=== PATIENT | male | born 1960 | race Caucasian/White ===

== ENCOUNTER 2022-02-19 19:22 | Inpatient (IN) | payer BC ==
[~2022-02-19] VITALS: Ht 182.9 cm; Wt 139.5 kg
[2022-02-19] MEDS: carvedilol 6.25mg tablet PO SCH ×2 (19:25→19:53)
[2022-02-19] MEDS ORDERED: nitroGLYCERIN 0.4mg/hour patch TD ONE (19:25)
[2022-02-19 19:45] LABS: ABG BASE EXCESS 5.5 mmol/L (-2.0-2.0); ABG HCO3 37.3 mmol/L (22.0-26.0); ABG OXYGEN SATURATION 97.3 % (94-97); ABG PCO2 (T) 99.1 mmHg (35.0-48.0); ABG PO2 (T) 114.3 mmHg (75.0-100.0); ALLEN'S TEST POSITIVE; FCOHb 2.2 % (0.0-3.9); FLOW 6 L/min; FMetHb 0.4 % (0.0-1.5); FO2Hb 94.8 % (94-97); PATIENT TEMPERATURE 37.2; TOTAL HEMOGLOBIN 14.4 G/dl (14.0-18.0)
[2022-02-19] MEDS ORDERED: naloxone 0.4 mg/ml inj IV ONE (19:50)
[2022-02-19 19:51] LABS: BASOPHILS % (AUTO) 0.1 % (0-1); EOSINOPHILS # (AUTO) 0.2 X10'3 (0-0.9); HEMOGLOBIN 13.3 g/dl (14.0-17.9); LYMPHOCYTES # (AUTO) 0.7 X10'3 (1.1-4.8); LYMPHOCYTES % (AUTO) 8.2 % (21-51); MEAN CORPUSCULAR HEMOGLOBIN 27.2 PG (27.0-31.0); MEAN CORPUSCULAR HGB CONC 31.6 g/dL (33.0-36.5); MEAN PLATELET VOLUME 10.2 FL (7.4-10.4); MONOCYTES # (AUTO) 0.9 X10'3 (0-0.9); MONOCYTES % (AUTO) 10.8 % (2-12); NEUTROPHILS # (AUTO) 6.5 X10'3 (1.8-7.7); NEUTROPHILS % (AUTO) 78.9 % (42-75); PLATELET COUNT 72 X10'3 (140-440); RED BLOOD COUNT 4.88 X10'6 (4.70-6.10); RED CELL DISTRIBUTION WIDTH 18.8 % (11.5-14.5); WHITE BLOOD COUNT 8.3 X10'3 (4.5-11.0)
[2022-02-19 20:02] LABS: APTT 28 SECONDS (22-32)
[2022-02-19 20:03] LABS: ALANINE AMINOTRANSFERASE 28 U/L (12-78); ALBUMIN/GLOBULIN RATIO 0.5 (1.1-1.5); ALKALINE PHOSPHATASE 205 IU/L (46-116); ANION GAP 5 (8-16); ASPARTATE AMINO TRANSFERASE 51 U/L (10-37); BILIRUBIN,TOTAL 1.9 MG/DL (0.1-1.0); BLOOD UREA NITROGEN 8 MG/DL (7-18); BUN/CREATININE RATIO 7.8 (5.4-32.0); CALCIUM 7.9 MG/DL (8.5-10.1); CHLORIDE 95 MMOL/L (99-107); CREATININE 1.03 MG/DL (0.60-1.10); GLUCOSE 156 MG/DL (70-104); POTASSIUM 4.1 MMOL/L (3.5-5.1); SODIUM 137 MMOL/L (135-145); TOTAL CARBON DIOXIDE 37.4 MMOL/L (24-32); TOTAL PROTEIN 8.8 G/DL (6.4-8.2); eGFR 73 ML/MIN
[2022-02-19 20:11] LABS: MAGNESIUM 1.2 MG/DL (1.5-2.4)
[2022-02-19] MEDS: naloxone 0.4 mg/ml inj IV PRN ×2 (20:13→20:39)
[2022-02-19 20:27] LABS: ETHANOL < 0.010 GM/DL (0.0-0.010)
[2022-02-19 20:40] LABS: URINE AMPHETAMINE SCREEN NEGATIVE (Neg); URINE BARBITUATE SCREEN NEGATIVE (Neg); URINE BENZODIAZEPINES SCREEN NEGATIVE (Neg); URINE CANNABINOID SCREEN NEGATIVE (Neg); URINE COCAINE SCREEN NEGATIVE (Neg); URINE METHADONE SCREEN NEGATIVE (Neg); URINE OPIATE SCREEN NEGATIVE (Neg); URINE PHENCYCLIDINE SCREEN NEGATIVE (Neg)
[2022-02-19 20:45] LABS: PLATELET ESTIMATE DECREASED; POLYCHROMASIA 1+
[2022-02-19 20:46] LABS: ELLIPTOCYTES FEW
[2022-02-19] MEDS ORDERED: succinylcholine 20mg/ml inj IV ONE (21:50)
[2022-02-19] MEDS ORDERED: midazolam 100mg in NS 100ml 100 ML IV ONE (21:50)
[2022-02-19] MEDS ORDERED: propofol 1000mg/100ml bottle 100 ML IV ONE (21:50)
[2022-02-19] MEDS ORDERED: etomidate 2mg/ml inj. IV ONE (21:50)
[2022-02-19] MEDS ORDERED: POTA-192 PO (21:52)
[2022-02-19 22:23] VITALS: BP 92/59
[2022-02-19] MEDS ORDERED: normal saline 500ml IV soln 500 ML IV ONE (22:45)
[2022-02-19] MEDS ORDERED: METF-436 PO (22:47)
[2022-02-19] MEDS ORDERED: CETI-90 PO (22:47)
[2022-02-19] MEDS ORDERED: FURO-150 PO (22:48)
[2022-02-19] MEDS ORDERED: PANT-47 PO (22:49)
[2022-02-19] MEDS ORDERED: AMIO200T61 PO (22:50)
[2022-02-19 22:55] LABS: ABG BASE EXCESS 8.3 mmol/L (-2.0-2.0); ABG HCO3 36.7 mmol/L (22.0-26.0); ABG OXYGEN SATURATION 95.5 % (94-97); ABG PCO2 (T) 71.8 mmHg (35.0-48.0); ABG PO2 (T) 85.1 mmHg (75.0-100.0); ALLEN'S TEST POSITIVE; FCOHb 2.3 % (0.0-3.9); FMetHb 0.3 % (0.0-1.5); PATIENT TEMPERATURE 37.5; PEEP 5 cm H2O; RESPIRATORY RATE 18 b/min; TIDAL VOLUME 450 mL; TOTAL HEMOGLOBIN 13.2 G/dl (14.0-18.0)
[2022-02-19] MEDS ORDERED: ATOR40TA PO (22:58)
[2022-02-19] MEDS ORDERED: ESCI10TA PO (22:58)
[2022-02-19] MEDS ORDERED: CARV-50 PO (22:59)
[2022-02-19] MEDS ORDERED: SYN0.088T PO (23:00)
[2022-02-19] MEDS ORDERED: OMEG-166 PO (23:03)
[2022-02-19] MEDS ORDERED: DOCU-148 PO (23:03)
[2022-02-19] MEDS ORDERED: MAGN250T11 PO (23:03)
[2022-02-19] MEDS ORDERED: FOLI0.8T6 PO (23:03)
[2022-02-19] MEDS ORDERED: VIT1TABL66 (23:03)
[2022-02-19] MEDS ORDERED: MELA10CA2 PO (23:03)
[2022-02-19] MEDS ORDERED: MULT-1085 PO (23:03)
[2022-02-19] MEDS ORDERED: LIDOcaine 2% 10ml TOPICAL JELLY (Urojet) TP ONE (23:35)
[2022-02-19] MEDS ORDERED: ondansetron/PF 4mg/2ml inj IV PRN (23:35)
[2022-02-19] MEDS ORDERED: magnesium hydroxide 30ml (MOM) UD suspension PO PRN (23:35)
[2022-02-19] MEDS ORDERED: acetaminophen 325mg tablet PO PRN ×2 (23:35)
[2022-02-19] MEDS ORDERED: POTASSIUM BICARB 20meq eff tab 20 MEQ TABLET.EFF PO PRN ×2 (23:35)
[2022-02-19] MEDS ORDERED: heparin 10,000 units/1 ML INJ IV PRN (23:45)
[2022-02-19] MEDS ORDERED: heparin 10,000 units/1 ML INJ IV ONE (23:45)
[2022-02-19] MEDS: FENTANYL-0.9 % NACL/PF 100 ML IV SCH (23:45)
[2022-02-19] MEDS ORDERED: propofol 1000mg/100ml bottle 100 ML IV SCH (23:45)
[2022-02-19 23:46] VITALS: BP 104/63
[2022-02-20] VITALS (21 sets, daily range): BP systolic 104–133; BP diastolic 52–84
[2022-02-20 00:14] LABS: TRIGLYCERIDES 74 MG/DL (20-135)
--- NOTE | 2022-02-20 00:22 | NUR ---
Per Dr. Salas to confirm he wanted to start Heparin drip with pt platelets 72 and PTT 28. Ok to start drip and will recheck platelets in the morning.
--- NOTE | 2022-02-20 01:07 | NUR ---
report given to Kathryn EWING.
[2022-02-20] MEDS ORDERED: AMIO100T4 PO (01:22)
[2022-02-20] MEDS ORDERED: POTA-205 PO (01:22)
[2022-02-20] MEDS ORDERED: CARV6.253 PO (01:22)
[2022-02-20] MEDS ORDERED: LEVO137C4 PO (01:22)
[2022-02-20] MEDS: HEPARIN SOD,PORK IN 0.45% NACL 250 ML IV SCH (01:47)
[2022-02-20 03:08] LABS: ABG BASE EXCESS 9.4 mmol/L (-2.0-2.0); ABG HCO3 35.6 mmol/L (22.0-26.0); ABG OXYGEN SATURATION 95.7 % (94-97); ABG PCO2 (T) 57.8 mmHg (35.0-48.0); ALLEN'S TEST POSITIVE; FCOHb 1.7 % (0.0-3.9); FMetHb 0.2 % (0.0-1.5); FO2Hb 93.9 % (94-97); PATIENT TEMPERATURE 37.9; PEEP 5 cm H2O; RESPIRATORY RATE 18 b/min; TIDAL VOLUME 450 mL; TOTAL HEMOGLOBIN 12.7 G/dl (14.0-18.0)
[2022-02-20] MEDS ORDERED: acetaminophen 650mg rectal suppository RC PRN (03:11)
--- NOTE | 2022-02-20 06:54 | NUR ---
ASSUMED CARE OF PT. FENT GTT @ 150MCG/HR, VERSED 3ML/HR, HEP GTT @ 1000 UNITS AND AWAITING THIS MORNING'S PLT AND PTT. HOLDING FOR ICU BED.
[2022-02-20] MEDS ORDERED: propofol 1000mg/100ml bottle 100 ML IV SCH (07:00)
[2022-02-20] MEDS ORDERED: pantoprazole 40mg Tablet.DR PO SCH (07:30)
[2022-02-20 07:41] LABS: BASOPHILS % (AUTO) 0.3 % (0-1); EOSINOPHILS # (AUTO) 0.1 X10'3 (0-0.9); EOSINOPHILS % (AUTO) 1.6 % (0-6); HEMATOCRIT 37.1 % (42.0-52.0); HEMOGLOBIN 11.7 g/dl (14.0-17.9); LYMPHOCYTES # (AUTO) 0.9 X10'3 (1.1-4.8); MEAN CORPUSCULAR HGB CONC 31.6 g/dL (33.0-36.5); MEAN CORPUSCULAR VOLUME 85.6 FL (78-98); MEAN PLATELET VOLUME 10.4 FL (7.4-10.4); MONOCYTES # (AUTO) 0.8 X10'3 (0-0.9); MONOCYTES % (AUTO) 12.5 % (2-12); NEUTROPHILS # (AUTO) 4.8 X10'3 (1.8-7.7); NEUTROPHILS % (AUTO) 72.6 % (42-75); PLATELET COUNT 60 X10'3 (140-440); RED BLOOD COUNT 4.33 X10'6 (4.70-6.10); RED CELL DISTRIBUTION WIDTH 18.3 % (11.5-14.5); WHITE BLOOD COUNT 6.6 X10'3 (4.5-11.0)
[2022-02-20 07:56] LABS: APTT 33 SECONDS (22-32)
[2022-02-20] MEDS: K and/or MAG REPLACEMENT MC SCH (08:00)
[2022-02-20] MEDS ORDERED: aspirin 81mg tab.chew PO ONE (08:00)
[2022-02-20] MEDS: FENTANYL-0.9 % NACL/PF 100 ML IV SCH ×2 (08:21→16:06)
[2022-02-20 08:28] LABS: ALANINE AMINOTRANSFERASE 23 U/L (12-78); ALBUMIN 2.5 G/DL (3.4-5.0); ALBUMIN/GLOBULIN RATIO 0.5 (1.1-1.5); ALKALINE PHOSPHATASE 159 IU/L (46-116); ANION GAP 8 (8-16); ASPARTATE AMINO TRANSFERASE 49 U/L (10-37); BILIRUBIN,TOTAL 1.4 MG/DL (0.1-1.0); BLOOD UREA NITROGEN 8 MG/DL (7-18); BUN/CREATININE RATIO 8.5 (5.4-32.0); CALCIUM 7.8 MG/DL (8.5-10.1); CHLORIDE 98 MMOL/L (99-107); CREATININE 0.94 MG/DL (0.60-1.10); GLUCOSE 102 MG/DL (70-104); MAGNESIUM 1.2 MG/DL (1.5-2.4); SODIUM 141 MMOL/L (135-145); TOTAL CARBON DIOXIDE 34.9 MMOL/L (24-32); TOTAL PROTEIN 7.5 G/DL (6.4-8.2); TRIGLYCERIDES 74 MG/DL (20-135); eGFR 82 ML/MIN
--- NOTE | 2022-02-20 09:05 | NUR ---
SPOKE WITH DR JACKSON WHO STATED TO HOLD HEP GTT GIVEN PLT COUNT. HEPARIN STOPPED @ 904. PLAN TO PLACE CT AT BEDSIDE 2 HOURS AFTER GTT STOPPED. FENT GTT CHANGED TO 50MCG/HR AND VERSED TO 5MG/H.
[2022-02-20] MEDS: magnesium 2GM in 50ml NS 50 ML IV PRN (10:35)
[2022-02-20] MEDS ORDERED: LIDOcaine 1% 30ml preserv. free vial SQ STA (11:36)
--- NOTE | 2022-02-20 11:49 | NUR ---
REPORT CALLED TO MIKY IN CICU. WILL TRANSFER PATIENT AFTER PIGTAIL PLACED.
[2022-02-20] MEDS ORDERED: LIDOcaine 1% 30ml preserv. free vial IJ STA (11:58)
--- NOTE | 2022-02-20 12:26 | NUR ---
Per Dr. Dixon verbal order, patient received at versed bolus of 2 mg IV once now. Versed also increased to 6 mg (at which charted in IV spread sheet)
--- NOTE | 2022-02-20 12:27 | NUR ---
Late chart @1215- chest tube set up for Dr. Galindo. Time out performed at 1216 in the presents of Dr. Galindo. @1220 - Attempted to place pig tail chest tube at which attempt failed. @1225 - Dr. Galindo requested a 28 Fr. chest tube to be place due to fluid in the pleural space. @1227 - Blood pressure 104/53 mmHg, 72 beats/min sinus rhythm with rare PVC's, 97% on 100 FiO2, rate at 18, vital volume of 450 mL, PEEP 5. Patient tolerating procedure well.
--- NOTE | 2022-02-20 12:52 | NUR ---
Chest tube place successfully, [address] and secured by Dr. Galindo. Primary RN loki placing dry dressing. Chest tube output at 750 mL, serious with blood tinged fluid.
--- NOTE | 2022-02-20 12:53 | NUR ---
Dr. Galindo gave verbal order for single view chest xray post chest tube placement.
--- NOTE | 2022-02-20 12:54 | NUR ---
Per Dr. Galindo, let chest tube drain approx. 2-3 L then apply suction.
--- NOTE | 2022-02-20 13:53 | NUR ---
1330 - after 28F CT placed - total amount out 1800ml serous fluid out. 325ml zac-colored urine emptied from tirado.
--- NOTE | 2022-02-20 14:00 | NUR ---
pt admitted to room 2008 via xiang from ER accompained by RN, RT and tech.. vss. ct clamped for approx 1 hour.
[2022-02-20] MEDS ORDERED: midazolam 100mg in NS 100ml 100 ML IV PRN (16:10)
[2022-02-20] MEDS ORDERED: normal saline 1000ml 1,000 ML IV ONE (16:35)
--- NOTE | 2022-02-20 16:51 | NUR ---
Dr. Galindo at bedside pleural fluid sent to lab. order received for ns 1 liter bolus
[2022-02-20 17:10] LABS: ALBUMIN,BODY FLUID 1.1 G/DL; LDH,BODY FLUID 190 U/L
[2022-02-20 17:41] LABS: EOSINOPHILS,BODY FLUID 2 %; LYMPHOCYTES,BODY FLUID 8 %; MONOCYTES,BODY FLUID 4 %; NEUTROPHILS,BODY FLUID 86 %
[2022-02-20 17:42] LABS: BFAPPEAR CLOUDY
[2022-02-20 17:43] LABS: BF MESOTHELIAL CELLS FEW; BF RBC COUNT 36625 /CU MM; BF WBC COUNT 820 /CU MM (0-1000); BFCOLOR AMBER; BFVOLUME 20 ML
[2022-02-20 17:53] LABS: ALBUMIN 2.1 G/DL (3.4-5.0); ANION GAP 7 (8-16); BLOOD UREA NITROGEN 10 MG/DL (7-18); BUN/CREATININE RATIO 10.8 (5.4-32.0); CALCIUM 7.7 MG/DL (8.5-10.1); CHLORIDE 98 MMOL/L (99-107); CREATININE 0.93 MG/DL (0.60-1.10); GLUCOSE 103 MG/DL (70-104); SODIUM 139 MMOL/L (135-145); TOTAL CARBON DIOXIDE 34.4 MMOL/L (24-32); eGFR 83 ML/MIN
[2022-02-20 17:54] LABS: POTASSIUM 4.1 MMOL/L (3.5-5.1)
[2022-02-20 18:11] LABS: HEMOGLOBIN A1C 6.5 % (4.5-6.2)
[2022-02-20] MEDS ORDERED: fentaNYL/PF 50MCG/1 ML 2ML syringe IV PRN (19:15)
[2022-02-20] MEDS ORDERED: docusate sod 100mg capsule PO SCH (20:00)
[2022-02-20] MEDS: carvedilol 6.25mg tablet PO SCH (20:23)
[2022-02-20] MEDS ORDERED: Melatonin 3mg tablet PO SCH (21:00)
[2022-02-21] VITALS (35 sets, daily range): BP systolic 92–121; BP diastolic 48–71
[2022-02-21] MEDS: FENTANYL-0.9 % NACL/PF 100 ML IV SCH ×3 (00:40→19:08)
[2022-02-21] MEDS: HEPARIN SOD,PORK IN 0.45% NACL 250 ML IV SCH (00:45)
[2022-02-21 03:24] LABS: CLARITY,URINE TURBID (Clear); COLOR,URINE BROWN (Yellow)
[2022-02-21 03:28] LABS: UA COLLECTION TYPE FOLEY CATH
[2022-02-21 03:31] LABS: AMORPHOUS PHOSPHATES 4+; BACTERIA,URINE 1+ /HPF (Neg); SQUAMOUS EPITHELIAL CELL,UR FEW /LPF (FEW)
[2022-02-21 04:01] LABS: ABG BASE EXCESS 7.8 mmol/L (-2.0-2.0); ABG HCO3 32.7 mmol/L (22.0-26.0); ABG OXYGEN SATURATION 97.5 % (94-97); ABG PCO2 (T) 46.9 mmHg (35.0-48.0); ABG PO2 (T) 95.5 mmHg (75.0-100.0); ALLEN'S TEST Modified; FCOHb 0.9 % (0.0-3.9); FMetHb 0.3 % (0.0-1.5); FO2Hb 96.3 % (94-97); PATIENT TEMPERATURE 36.9; PEEP 5 cm H2O; RESPIRATORY RATE 18 b/min; TIDAL VOLUME 450 mL; TOTAL HEMOGLOBIN 12.5 G/dl (14.0-18.0)
[2022-02-21 06:22] LABS: ALANINE AMINOTRANSFERASE 26 U/L (12-78); ALBUMIN/GLOBULIN RATIO 0.4 (1.1-1.5); ALKALINE PHOSPHATASE 146 IU/L (46-116); ANION GAP 5 (8-16); ASPARTATE AMINO TRANSFERASE 42 U/L (10-37); BILIRUBIN,TOTAL 1.6 MG/DL (0.1-1.0); BLOOD UREA NITROGEN 11 MG/DL (7-18); BUN/CREATININE RATIO 10.7 (5.4-32.0); CALCIUM 7.9 MG/DL (8.5-10.1); CHLORIDE 100 MMOL/L (99-107); CREATININE 1.03 MG/DL (0.60-1.10); GLUCOSE 83 MG/DL (70-104); MAGNESIUM 1.8 MG/DL (1.5-2.4); POTASSIUM 3.9 MMOL/L (3.5-5.1); SODIUM 142 MMOL/L (135-145); TOTAL CARBON DIOXIDE 36.8 MMOL/L (24-32); TOTAL PROTEIN 6.7 G/DL (6.4-8.2); eGFR 73 ML/MIN
[2022-02-21 06:27] LABS: BASOPHILS % (AUTO) 0.5 % (0-1); EOSINOPHILS # (AUTO) 0.2 X10'3 (0-0.9); EOSINOPHILS % (AUTO) 2.5 % (0-6); HEMOGLOBIN 11.5 g/dl (14.0-17.9); MONOCYTES # (AUTO) 1.4 X10'3 (0-0.9); WHITE BLOOD COUNT 6.3 X10'3 (4.5-11.0)
[2022-02-21 06:32] LABS: HEMATOCRIT 36.5 % (42.0-52.0); LYMPHOCYTES # (AUTO) 0.8 X10'3 (1.1-4.8); LYMPHOCYTES % (AUTO) 12.2 % (21-51); MEAN CORPUSCULAR HEMOGLOBIN 27.4 PG (27.0-31.0); MEAN CORPUSCULAR HGB CONC 31.6 g/dL (33.0-36.5); MEAN CORPUSCULAR VOLUME 86.7 FL (78-98); MEAN PLATELET VOLUME 11.2 FL (7.4-10.4); MONOCYTES % (AUTO) 21.5 % (2-12); NEUTROPHILS % (AUTO) 63.3 % (42-75); PLATELET COUNT 51 X10'3 (140-440); RED CELL DISTRIBUTION WIDTH 18.9 % (11.5-14.5)
[2022-02-21 07:20] LABS: ACANTHOCYTES FEW; ANISOCYTOSIS 2+; NUCLEATED RED BLOOD CELLS 2 /100WBC (0-0); PLATELET ESTIMATE DECREASED; TOTAL CELLS COUNTED 100
[2022-02-21 07:21] LABS: ELLIPTOCYTES 1+; HYPOCHROMASIA 1+
[2022-02-21] MEDS ORDERED: levoTHYROXINE 25mcg tablet PO SCH (07:30)
[2022-02-21] MEDS ORDERED: levoTHYROXINE 112mcg tablet PO SCH (07:30)
[2022-02-21] MEDS ORDERED: furosemide 10 MG/1 ML 10ml inj IV ONE (07:45)
[2022-02-21] MEDS ORDERED: atorvastatin 20mg tablet PO SCH (08:00)
[2022-02-21] MEDS ORDERED: amiodarone 100mg tablet PO SCH (08:00)
[2022-02-21] MEDS: K and/or MAG REPLACEMENT MC SCH (08:00)
[2022-02-21] MEDS: OMEGA-3/DHA/EPA/FISH OIL 1 EACH CAPSULE.DR PO SCH (08:00)
[2022-02-21] MEDS ORDERED: pantoprazole 40mg Tablet.DR PO SCH (08:00)
[2022-02-21] MEDS ORDERED: ESCITALOPRAM OXALATE 5 MG TABLET PO SCH (08:00)
[2022-02-21] MEDS: carvedilol 6.25mg tablet PO SCH (10:49)
--- NOTE | 2022-02-21 11:03 | NUR ---
DM/TF consults: Per EMR pt with T2DM, well controlled with A1c 6.5%, DM education not warranted at this time. Pt admit for NSTEMI with pulmonary edema. Pt intubated at this time with an OGT in place, see TF recommendations below. Noted pt with a low Simeon of 12. Per EMR pt with 1+ edema to bilat feet and skin is intact. No documented BM since admit though pt receiving routine bowel care. Will continue to follow closely. Recommendations: 1) Continuous TF via OGT using Vital HP with 90 mL/hr goal to provide 2160 mL total volume/day, 2160 kcal, 189 g protein, and 1806 mL water 2) Additional 100 mL water flush Q4H; monitor serum Na 3) Prealbumin q Saturday/ 4) Daily scaled weights 5) Routine bowel care 6) Advance to heart healthy diet as medically indicated following extubation Addendum: 02/21/22 at [address] Amended: Links added.
[2022-02-21] MEDS: argatroban in NS 50mg/50ml 50 ML IV SCH ×5 (12:25→21:42)
[2022-02-21] MEDS ORDERED: acetaminophen 325mg tablet OGT PRN (14:27)
[2022-02-21] MEDS ORDERED: magnesium hydroxide 30ml (MOM) UD suspension OGT PRN (14:32)
[2022-02-21] MEDS ORDERED: POTASSIUM BICARB 20meq eff tab 20 MEQ TABLET.EFF OGT PRN (14:33)
--- NOTE | 2022-02-21 18:32 | NUR ---
Problems reprioritized. Patient report given, questions answered & plan of care reviewed.
[2022-02-21] MEDS: midazolam 100mg in NS 100ml 100 ML IV PRN (19:09)
[2022-02-21] MEDS: docusate sodium 100mg/10ml UD cup OGT SCH (20:40)
[2022-02-21] MEDS: carvedilol 6.25mg tablet OGT SCH (20:41)
[2022-02-21] MEDS: mineral oil/petrolatum, white cream 113gm jar TP SCH (20:51)
[2022-02-21] MEDS: Melatonin 3mg tablet OGT SCH (21:26)
[2022-02-21] MEDS ORDERED: bisacodyl 10mg suppository rectal RC PRN (23:35)
[2022-02-22] VITALS (35 sets, daily range): BP systolic 94–118; BP diastolic 46–70
[2022-02-22] MEDS: FENTANYL-0.9 % NACL/PF 100 ML IV SCH ×2 (03:10→19:19)
[2022-02-22 03:29] LABS: BASOPHILS % (AUTO) 0.4 % (0-1); EOSINOPHILS # (AUTO) 0.2 X10'3 (0-0.9); EOSINOPHILS % (AUTO) 2.8 % (0-6); HEMATOCRIT 35.7 % (42.0-52.0); HEMOGLOBIN 11.4 g/dl (14.0-17.9); LYMPHOCYTES # (AUTO) 0.5 X10'3 (1.1-4.8); LYMPHOCYTES % (AUTO) 8.9 % (21-51); MEAN CORPUSCULAR HEMOGLOBIN 27.4 PG (27.0-31.0); MEAN CORPUSCULAR HGB CONC 32.1 g/dL (33.0-36.5); MEAN CORPUSCULAR VOLUME 85.5 FL (78-98); MEAN PLATELET VOLUME 10.9 FL (7.4-10.4); MONOCYTES # (AUTO) 0.6 X10'3 (0-0.9); MONOCYTES % (AUTO) 11.5 % (2-12); NEUTROPHILS # (AUTO) 4.2 X10'3 (1.8-7.7); NEUTROPHILS % (AUTO) 76.4 % (42-75); RED BLOOD COUNT 4.17 X10'6 (4.70-6.10); RED CELL DISTRIBUTION WIDTH 18.5 % (11.5-14.5); WHITE BLOOD COUNT 5.6 X10'3 (4.5-11.0)
[2022-02-22 03:37] LABS: ABG BASE EXCESS 10.7 mmol/L (-2.0-2.0); ABG HCO3 37.1 mmol/L (22.0-26.0); ABG OXYGEN SATURATION 93.6 % (94-97); ABG PCO2 (T) 57.4 mmHg (35.0-48.0); ABG PO2 (T) 72.4 mmHg (75.0-100.0); ALLEN'S TEST POSITIVE; FCOHb 0.7 % (0.0-3.9); FMetHb 0.3 % (0.0-1.5); FO2Hb 92.7 % (94-97); PATIENT TEMPERATURE 36.9; PEEP 5 cm H2O; RESPIRATORY RATE 18 b/min; TIDAL VOLUME 450 mL; TOTAL HEMOGLOBIN 12.6 G/dl (14.0-18.0)
[2022-02-22 03:42] LABS: PLATELET COUNT 49 X10'3 (140-440)
[2022-02-22 03:50] LABS: ALANINE AMINOTRANSFERASE 16 U/L (12-78); ALBUMIN/GLOBULIN RATIO 0.4 (1.1-1.5); ALKALINE PHOSPHATASE 148 IU/L (46-116); ANION GAP 7 (8-16); ASPARTATE AMINO TRANSFERASE 42 U/L (10-37); BILIRUBIN,TOTAL 1.7 MG/DL (0.1-1.0); BLOOD UREA NITROGEN 14 MG/DL (7-18); BUN/CREATININE RATIO 11.8 (5.4-32.0); CALCIUM 7.5 MG/DL (8.5-10.1); CHLORIDE 99 MMOL/L (99-107); CREATININE 1.19 MG/DL (0.60-1.10); GLUCOSE 123 MG/DL (70-104); MAGNESIUM 1.4 MG/DL (1.5-2.4); POTASSIUM 3.6 MMOL/L (3.5-5.1); PREALBUMIN 9.8 MG/DL (19-36); SODIUM 142 MMOL/L (135-145); TOTAL CARBON DIOXIDE 36.4 MMOL/L (24-32); TOTAL PROTEIN 6.7 G/DL (6.4-8.2); TRIGLYCERIDES 79 MG/DL (20-135); eGFR 62 ML/MIN
[2022-02-22] MEDS: argatroban in NS 50mg/50ml 50 ML IV SCH (04:08)
--- NOTE | 2022-02-22 04:10 | NUR ---
PTT 114---followed protocol for Argatraban. Recheck this morning was PTT 68. MD Salas notified 0410 from critical PTT as well as platelets 49. No new orders given. Addendum: 02/22/22 at 0645 by Kade Webb RN 1900 Dr. Galindo at bedside. New orders given for plavix and aspirin. See charting for details.
[2022-02-22 04:33] LABS: ANISOCYTOSIS 2+; PLATELET ESTIMATE DECREASED
[2022-02-22 04:34] LABS: LARGE PLATELETS FEW
[2022-02-22] MEDS: magnesium 2GM in 50ml NS 50 ML IV PRN (04:42)
[2022-02-22] MEDS: levoTHYROXINE 25mcg tablet OGT SCH (07:30)
[2022-02-22] MEDS: levoTHYROXINE 112mcg tablet OGT SCH (07:30)
[2022-02-22] MEDS: K and/or MAG REPLACEMENT MC SCH (08:00)
[2022-02-22] MEDS ORDERED: clopidogrel 75mg tablet PO SCH (08:00)
[2022-02-22] MEDS ORDERED: aspirin 325mg tablet PO SCH (08:30)
[2022-02-22] MEDS: docusate sodium 100mg/10ml UD cup OGT SCH ×2 (08:53→21:39)
[2022-02-22] MEDS: lansoprazole 15mg solutab OGT SCH (08:54)
[2022-02-22] MEDS: ESCITALOPRAM OXALATE 5 MG TABLET OGT SCH (08:54)
[2022-02-22] MEDS: atorvastatin 20mg tablet OGT SCH (08:54)
[2022-02-22] MEDS: OMEGA-3/DHA/EPA/FISH OIL 1 EACH CAPSULE.DR PO SCH (08:55)
[2022-02-22] MEDS: carvedilol 6.25mg tablet OGT SCH ×2 (08:55→21:40)
[2022-02-22] MEDS: amiodarone 100mg tablet OGT SCH (08:55)
[2022-02-22] MEDS: mineral oil/petrolatum, white cream 113gm jar TP SCH ×2 (08:56→21:40)
[2022-02-22 10:16] LABS: BASOPHILS # (AUTO) 0.1 X10'3 (0-0.2); BASOPHILS % (AUTO) 1.4 % (0-1); EOSINOPHILS # (AUTO) 0.1 X10'3 (0-0.9); EOSINOPHILS % (AUTO) 2.5 % (0-6); HEMATOCRIT 35.8 % (42.0-52.0); HEMOGLOBIN 11.4 g/dl (14.0-17.9); LYMPHOCYTES # (AUTO) 0.4 X10'3 (1.1-4.8); LYMPHOCYTES % (AUTO) 7.4 % (21-51); MEAN CORPUSCULAR HEMOGLOBIN 27.3 PG (27.0-31.0); MEAN CORPUSCULAR HGB CONC 31.9 g/dL (33.0-36.5); MEAN CORPUSCULAR VOLUME 85.6 FL (78-98); MEAN PLATELET VOLUME 11.2 FL (7.4-10.4); MONOCYTES # (AUTO) 0.6 X10'3 (0-0.9); MONOCYTES % (AUTO) 10.5 % (2-12); NEUTROPHILS # (AUTO) 4.2 X10'3 (1.8-7.7); NEUTROPHILS % (AUTO) 78.2 % (42-75); RED BLOOD COUNT 4.18 X10'6 (4.70-6.10); RED CELL DISTRIBUTION WIDTH 18.9 % (11.5-14.5); WHITE BLOOD COUNT 5.3 X10'3 (4.5-11.0)
[2022-02-22 10:19] LABS: ALANINE AMINOTRANSFERASE 26 U/L (12-78); ALBUMIN 1.9 G/DL (3.4-5.0); ALBUMIN/GLOBULIN RATIO 0.4 (1.1-1.5); ALKALINE PHOSPHATASE 153 IU/L (46-116); ANION GAP 7 (8-16); ASPARTATE AMINO TRANSFERASE 41 U/L (10-37); BILIRUBIN,TOTAL 1.6 MG/DL (0.1-1.0); BLOOD UREA NITROGEN 15 MG/DL (7-18); BUN/CREATININE RATIO 13.8 (5.4-32.0); CALCIUM 7.5 MG/DL (8.5-10.1); CHLORIDE 99 MMOL/L (99-107); CREATININE 1.09 MG/DL (0.60-1.10); GLUCOSE 144 MG/DL (70-104); POTASSIUM 3.4 MMOL/L (3.5-5.1); SODIUM 142 MMOL/L (135-145); TOTAL CARBON DIOXIDE 36.5 MMOL/L (24-32); TOTAL PROTEIN 6.8 G/DL (6.4-8.2); eGFR 69 ML/MIN
[2022-02-22 10:20] LABS: PLATELET COUNT 47 X10'3 (140-440)
[2022-02-22 10:36] LABS: ANISOCYTOSIS 2+; PLATELET ESTIMATE DECREASED
[2022-02-22 10:37] LABS: ELLIPTOCYTES 1+
[2022-02-22] MEDS ORDERED: sodium bicarbonate (8.4%) inj. 150 MEQ in dextrose 5%-water 1,000 ML IV SCH (11:20)
--- NOTE | 2022-02-22 11:55 | NUR ---
and KAYLIN samuelsn bloody thick secretions for ETT. Bronchoscopy held will readress after 1500 per . Addendum: 02/22/22 at 1156 by Yamilka Higgins RT Amended: Links added.
[2022-02-22] MEDS ORDERED: calcium acetate 667mg (PhosLO) capsule OGT SCH (13:00)
[2022-02-22] MEDS ORDERED: ondansetron 4mg/5ml UD cup OGT PRN (17:15)
--- NOTE | 2022-02-22 18:30 | NUR ---
Report given to this RN from Jose at bedside. Pt in no acute distress at time of shift change. Fentanyl and versed drips verified. Chest tube intact.
[2022-02-22] MEDS: Melatonin 3mg tablet OGT SCH (21:39)
[2022-02-23] VITALS (36 sets, daily range): BP systolic 83–143; BP diastolic 42–70
[2022-02-23] MEDS: midazolam 100mg in NS 100ml 100 ML IV PRN ×2 (00:51→17:53)
[2022-02-23 03:28] LABS: ABG BASE EXCESS 9.1 mmol/L (-2.0-2.0); ABG HCO3 35.2 mmol/L (22.0-26.0); ABG OXYGEN SATURATION 91.9 % (94-97); ABG PCO2 (T) 56.3 mmHg (35.0-48.0); ABG PO2 (T) 68.9 mmHg (75.0-100.0); ALLEN'S TEST POSITIVE; FCOHb 0.9 % (0.0-3.9); FMetHb 0.4 % (0.0-1.5); FO2Hb 90.7 % (94-97); PATIENT TEMPERATURE 37.7; PEEP 5 cm H2O; RESPIRATORY RATE 18 b/min; TIDAL VOLUME 450 mL; TOTAL HEMOGLOBIN 12.7 G/dl (14.0-18.0)
[2022-02-23 03:32] LABS: BASOPHILS % (AUTO) 0.3 % (0-1); EOSINOPHILS # (AUTO) 0.1 X10'3 (0-0.9); HEMATOCRIT 35.3 % (42.0-52.0); HEMOGLOBIN 11.3 g/dl (14.0-17.9); LYMPHOCYTES # (AUTO) 0.4 X10'3 (1.1-4.8); LYMPHOCYTES % (AUTO) 6.5 % (21-51); MEAN CORPUSCULAR HEMOGLOBIN 27.5 PG (27.0-31.0); MEAN CORPUSCULAR VOLUME 85.7 FL (78-98); MEAN PLATELET VOLUME 11.7 FL (7.4-10.4); MONOCYTES # (AUTO) 0.9 X10'3 (0-0.9); MONOCYTES % (AUTO) 14.5 % (2-12); NEUTROPHILS # (AUTO) 4.9 X10'3 (1.8-7.7); NEUTROPHILS % (AUTO) 76.7 % (42-75); PLATELET COUNT 54 X10'3 (140-440); RED BLOOD COUNT 4.12 X10'6 (4.70-6.10); RED CELL DISTRIBUTION WIDTH 18.9 % (11.5-14.5); WHITE BLOOD COUNT 6.4 X10'3 (4.5-11.0)
[2022-02-23 03:54] LABS: ALANINE AMINOTRANSFERASE 22 U/L (12-78); ALBUMIN 1.8 G/DL (3.4-5.0); ALBUMIN/GLOBULIN RATIO 0.4 (1.1-1.5); ALKALINE PHOSPHATASE 165 IU/L (46-116); ANION GAP 5 (8-16); ASPARTATE AMINO TRANSFERASE 65 U/L (10-37); BILIRUBIN,TOTAL 1.5 MG/DL (0.1-1.0); BLOOD UREA NITROGEN 18 MG/DL (7-18); BUN/CREATININE RATIO 14.5 (5.4-32.0); CALCIUM 7.5 MG/DL (8.5-10.1); CHLORIDE 99 MMOL/L (99-107); CREATININE 1.24 MG/DL (0.60-1.10); GLUCOSE 172 MG/DL (70-104); MAGNESIUM 1.8 MG/DL (1.5-2.4); SODIUM 141 MMOL/L (135-145); TOTAL CARBON DIOXIDE 37.2 MMOL/L (24-32); TOTAL PROTEIN 6.9 G/DL (6.4-8.2); eGFR 59 ML/MIN
[2022-02-23] MEDS: FENTANYL-0.9 % NACL/PF 100 ML IV SCH ×2 (04:56→21:46)
--- NOTE | 2022-02-23 05:48 | NUR ---
Pt had mostly uneventful mold shifter. Pt continues to be intubated and sedated. Pt is still desating with any turns. Went up on vershector drpratima. Restraints continue to be needed due to intermittent restless with care. Tube feeds remain at goal. No BM overnight. Addendum: 02/23/22 at 0637 by Kade Webb RN 0648 Report given to KAYLIN Mendoza. Kylie checked. Pt in no acute distress at time of report.
[2022-02-23] MEDS: lansoprazole 15mg solutab OGT SCH (08:00)
[2022-02-23] MEDS: amiodarone 100mg tablet OGT SCH (08:21)
[2022-02-23] MEDS: docusate sodium 100mg/10ml UD cup OGT SCH ×2 (08:21→21:03)
[2022-02-23] MEDS: ESCITALOPRAM OXALATE 5 MG TABLET OGT SCH (08:21)
[2022-02-23] MEDS: atorvastatin 20mg tablet OGT SCH (08:22)
[2022-02-23] MEDS: aspirin 325mg tablet OGT SCH (08:22)
[2022-02-23] MEDS: levoTHYROXINE 25mcg tablet OGT SCH (08:22)
[2022-02-23] MEDS: clopidogrel 75mg tablet OGT SCH (08:22)
[2022-02-23] MEDS: carvedilol 6.25mg tablet OGT SCH ×2 (08:22→21:03)
[2022-02-23] MEDS: OMEGA-3/DHA/EPA/FISH OIL 1 EACH CAPSULE.DR PO SCH (08:22)
[2022-02-23] MEDS: levoTHYROXINE 112mcg tablet OGT SCH (08:22)
[2022-02-23] MEDS: mineral oil/petrolatum, white cream 113gm jar TP SCH ×2 (08:26→21:03)
[2022-02-23] MEDS ORDERED: sodium bicarbonate (8.4%) inj. 150 MEQ in dextrose 5%-water 1,000 ML IV SCH (09:30)
[2022-02-23 09:44] LABS: PLATELET COUNT 59 X10'3 (140-440)
[2022-02-23] MEDS ORDERED: NORepinephrine 8mg/ 250ml NS 250 ML IV ONE (10:01)
[2022-02-23] MEDS: NORepinephrine 8mg/ 250ml NS 250 ML IV SCH ×3 (10:08→21:47)
[2022-02-23 10:14] LABS: APTT 26 SECONDS (22-32); D-DIMER 0.82 MG/L FEU (0-0.50)
[2022-02-23] MEDS ORDERED: lactulose 20gm/30ml cup PO PRN (11:10)
[2022-02-23] MEDS ORDERED: iohexol 350MG/ML 100ml bottle IV ONE (14:09)
[2022-02-23] MEDS: piperacillin/tazo 3.375gm/50ml 50 ML IV SCH ×2 (15:24→21:04)
[2022-02-23] MEDS ORDERED: DEXTROSE 15 GM of carb/4 tabs (each vial/BOTTLE has 4 tablets) PO PRN ×2 (16:10)
[2022-02-23] MEDS ORDERED: dextrose 50%-water 50ml dispensing syringe IV PRN ×2 (16:10)
[2022-02-23] MEDS ORDERED: glucagon, human recombinant 1mg kit SUBCUT PRN (16:10)
[2022-02-23] MEDS ORDERED: MESSAGE TO PHARMACY PO ONE (16:10)
[2022-02-23] MEDS ORDERED: DEXTROSE 15 GM of carb/4 tabs (each vial/BOTTLE has 4 tablets) OGT PRN ×2 (16:17)
[2022-02-23] MEDS: azithromycin/NS 500mg/250ml 250 ML IV SCH (16:19)
--- NOTE | 2022-02-23 18:25 | NUR ---
Patient in room CICU 2008. I have received report from Reji, RN and Audrey RN and had the opportunity to ask questions and assume patient care.
[2022-02-23] MEDS ORDERED: acetaminophen 325mg/10.15ml oral unit dose solution PO PRN (19:35)
[2022-02-23] MEDS: polyethylene glycol 3350 17gm powd pack OGT SCH (21:02)
[2022-02-23] MEDS: Melatonin 3mg tablet OGT SCH (21:03)
[2022-02-23] MEDS: lactulose 20gm/30ml cup OGT SCH (21:04)
[2022-02-23] MEDS: acetaminophen 325mg/10.15ml oral unit dose solution OGT PRN (21:12)
[2022-02-23] MEDS: insulin glargine (Lantus) pen - multi-dose SQ SCH (21:15)
[2022-02-23] MEDS: insulin regular, human U-100 3ml vial - multi-dose SQ SCH (21:51)
[2022-02-24] VITALS (35 sets, daily range): BP systolic 90–138; BP diastolic 50–73
--- NOTE | 2022-02-24 02:00 | NUR ---
Chest tube dressing changed: gauze saturated with purulent green drainage. Chest tube site cleaned with Chlorhexidine and redressed with vaseline gauze ang 4x4's secured with silk tape.
[2022-02-24] MEDS: piperacillin/tazo 3.375gm/50ml 50 ML IV SCH ×4 (02:14→19:37)
[2022-02-24] MEDS: NORepinephrine 8mg/ 250ml NS 250 ML IV SCH (02:25)
[2022-02-24] MEDS: insulin regular, human U-100 3ml vial - multi-dose SQ SCH ×4 (02:36→20:54)
[2022-02-24 03:10] LABS: BASOPHILS % (AUTO) 0.2 % (0-1); EOSINOPHILS # (AUTO) 0.1 X10'3 (0-0.9); HEMATOCRIT 36.4 % (42.0-52.0); HEMOGLOBIN 11.6 g/dl (14.0-17.9); LYMPHOCYTES # (AUTO) 0.6 X10'3 (1.1-4.8); LYMPHOCYTES % (AUTO) 4.9 % (21-51); MEAN CORPUSCULAR HEMOGLOBIN 27.2 PG (27.0-31.0); MEAN CORPUSCULAR HGB CONC 31.8 g/dL (33.0-36.5); MEAN CORPUSCULAR VOLUME 85.7 FL (78-98); MEAN PLATELET VOLUME 9.6 FL (7.4-10.4); MONOCYTES # (AUTO) 1.3 X10'3 (0-0.9); NEUTROPHILS # (AUTO) 9.7 X10'3 (1.8-7.7); NEUTROPHILS % (AUTO) 82.9 % (42-75); PLATELET COUNT 103 X10'3 (140-440); RED BLOOD COUNT 4.25 X10'6 (4.70-6.10); RED CELL DISTRIBUTION WIDTH 18.7 % (11.5-14.5); WHITE BLOOD COUNT 11.7 X10'3 (4.5-11.0)
[2022-02-24 03:26] LABS: ALANINE AMINOTRANSFERASE 22 U/L (12-78); ALBUMIN 1.8 G/DL (3.4-5.0); ALBUMIN/GLOBULIN RATIO 0.3 (1.1-1.5); ALKALINE PHOSPHATASE 157 IU/L (46-116); ANION GAP 9 (8-16); ASPARTATE AMINO TRANSFERASE 61 U/L (10-37); BLOOD UREA NITROGEN 16 MG/DL (7-18); BUN/CREATININE RATIO 15.1 (5.4-32.0); CALCIUM 7.7 MG/DL (8.5-10.1); CHLORIDE 102 MMOL/L (99-107); CREATININE 1.06 MG/DL (0.60-1.10); GLUCOSE 210 MG/DL (70-104); MAGNESIUM 1.8 MG/DL (1.5-2.4); SODIUM 146 MMOL/L (135-145); TOTAL CARBON DIOXIDE 35.3 MMOL/L (24-32); eGFR 71 ML/MIN
[2022-02-24 03:44] LABS: ABG HCO3 30.5 mmol/L (22.0-26.0); ABG OXYGEN SATURATION 95.8 % (94-97); ABG PCO2 (T) 55.5 mmHg (35.0-48.0); ABG PO2 (T) 90.5 mmHg (75.0-100.0); FCOHb 1.2 % (0.0-3.9); FMetHb 0.4 % (0.0-1.5); FO2Hb 94.3 % (94-97); PATIENT TEMPERATURE 37.9; PEEP 5 cm H2O; RESPIRATORY RATE 18 b/min; TIDAL VOLUME 450 mL; TOTAL HEMOGLOBIN 13.3 G/dl (14.0-18.0)
[2022-02-24 04:18] LABS: PLATELET ESTIMATE DECREASED
[2022-02-24 04:19] LABS: ANISOCYTOSIS 2+
[2022-02-24 04:20] LABS: ELLIPTOCYTES 1+
--- NOTE | 2022-02-24 05:48 | NUR ---
Chest tube total for shift in current atrium 1220 serosanguineous drainage.
--- NOTE | 2022-02-24 06:17 | NUR ---
Problems reprioritized. Patient report given, questions answered & plan of care reviewed with KAYLIN Garcia.
[2022-02-24] MEDS: lactulose 20gm/30ml cup OGT SCH (06:48)
[2022-02-24 07:54] LABS: PHOSPHORUS 2.9 MG/DL (2.3-4.5)
[2022-02-24] MEDS: mineral oil/petrolatum, white cream 113gm jar TP SCH ×2 (08:00→19:43)
[2022-02-24] MEDS: clopidogrel 75mg tablet OGT SCH (08:00)
[2022-02-24] MEDS ORDERED: LIDOCAINE 4% (40MG/ML) topical solution 50ml **BRONCH ONLY ONE (08:07)
[2022-02-24] MEDS: midazolam 100mg in NS 100ml 100 ML IV PRN (08:13)
--- NOTE | 2022-02-24 08:47 | NUR ---
Reassessment: Pt remains intubated and tolerating TF at goal rate with GRV WNL. Serum Na slightly elevated this morning though has previously been WNL. Pt receiving 100 mL water flushes Q4H, will monitor need to adjust. LBM 02/23 following additional admin of bowel care. No changes to nutrition interventions at this time. Will continue to follow closely. Recommendations: 1) Continuous TF via OGT using Vital HP with 90 mL/hr goal to provide 2160 mL total volume/day, 2160 kcal, 189 g protein, and 1806 mL water 2) Additional 100 mL water flush Q4H; monitor serum Na 3) Prealbumin q Saturday/ 4) Daily scaled weights 5) Routine bowel care 6) Advance to heart healthy diet as medically indicated following extubation Addendum: 02/24/22 at [address] Amended: Links added.
[2022-02-24] MEDS: docusate sodium 100mg/10ml UD cup OGT SCH ×2 (09:02→19:57)
[2022-02-24] MEDS: atorvastatin 20mg tablet OGT SCH (09:02)
[2022-02-24] MEDS: ESCITALOPRAM OXALATE 5 MG TABLET OGT SCH (09:02)
[2022-02-24] MEDS: OMEGA-3/DHA/EPA/FISH OIL 1 EACH CAPSULE.DR PO SCH (09:02)
[2022-02-24] MEDS: azithromycin/NS 500mg/250ml 250 ML IV SCH (09:02)
[2022-02-24] MEDS: levoTHYROXINE 112mcg tablet OGT SCH (09:03)
[2022-02-24] MEDS: amiodarone 100mg tablet OGT SCH (09:03)
[2022-02-24] MEDS: carvedilol 6.25mg tablet OGT SCH ×2 (09:03→19:42)
[2022-02-24] MEDS: levoTHYROXINE 25mcg tablet OGT SCH (09:03)
[2022-02-24] MEDS: lansoprazole 15mg solutab OGT SCH (09:03)
[2022-02-24] MEDS: aspirin 325mg tablet OGT SCH (09:04)
[2022-02-24] MEDS ORDERED: furosemide 40mg/4ml inj IV ONE ×2 (09:50→20:00)
[2022-02-24] MEDS ORDERED: vancomycin/NS 1 GM ADD-VANTAGE 250 ML IV ONE (09:55)
[2022-02-24] MEDS: NORepinephrine inj. 32 MG in normal saline 250ml IV soln 218 ML IV SCH (12:00)
[2022-02-24] MEDS: FENTANYL-0.9 % NACL/PF 100 ML IV SCH (16:54)
--- NOTE | 2022-02-24 18:20 | NUR ---
RECEIVED REPORT FROM OUTGOING NURSE. PT IS INTUBATED AND SEDATED. VERSED GTT AT 5MG/HR,FENTANYL AT 50MCG/HR AND LEVO AT 0.2MCG/KG/MIN ONGOING. MAP>65MMHG MAINTAINED. RT CT FUNCTIONING WITH KAROLYN GUERRA. NO AIR LEAKAGE NOTED. NO DISTRESS NOTED. FALL PRECAUTIONS MAINTAINED. WILL CONT MONITORING.
[2022-02-24] MEDS ORDERED: albumin (human) 25% 100 ML IV solution IV ONE (19:00)
[2022-02-24] MEDS: insulin glargine (Lantus) pen - multi-dose SQ SCH (20:55)
[2022-02-24] MEDS: polyethylene glycol 3350 17gm powd pack OGT SCH (20:57)
[2022-02-24] MEDS: VANCOmycin 1250MG/NS 250ml Bag 250 ML IV SCH (22:21)
[2022-02-24] MEDS: Melatonin 3mg tablet OGT SCH (23:03)
[2022-02-25] VITALS (35 sets, daily range): BP systolic 99–133; BP diastolic 49–79
[2022-02-25] MEDS ORDERED: albumin (human) 25% 100 ML IV solution IV ONE (02:00)
[2022-02-25] MEDS: piperacillin/tazo 3.375gm/50ml 50 ML IV SCH ×4 (02:10→19:54)
[2022-02-25] MEDS: midazolam 100mg in NS 100ml 100 ML IV PRN ×2 (02:19→21:10)
[2022-02-25] MEDS: insulin regular, human U-100 3ml vial - multi-dose SQ SCH ×3 (02:23→20:04)
[2022-02-25] MEDS ORDERED: furosemide 40mg/4ml inj IV ONE ×3 (03:00→16:00)
[2022-02-25 03:41] LABS: ABG BASE EXCESS 12.9 mmol/L (-2.0-2.0); ABG HCO3 40.3 mmol/L (22.0-26.0); ABG OXYGEN SATURATION 92.8 % (94-97); ABG PCO2 (T) 66.8 mmHg (35.0-48.0); ABG PO2 (T) 70.5 mmHg (75.0-100.0); FCOHb 0.7 % (0.0-3.9); FMetHb 0.3 % (0.0-1.5); FO2Hb 91.9 % (94-97); PATIENT TEMPERATURE 37.4; PEEP 5 cm H2O; RESPIRATORY RATE 18 b/min; TIDAL VOLUME 450 mL; TOTAL HEMOGLOBIN 12.3 G/dl (14.0-18.0)
[2022-02-25] MEDS: NORepinephrine inj. 32 MG in normal saline 250ml IV soln 218 ML IV SCH (03:54)
[2022-02-25 04:45] LABS: ALANINE AMINOTRANSFERASE 19 U/L (12-78); ALBUMIN 2.1 G/DL (3.4-5.0); ALBUMIN/GLOBULIN RATIO 0.4 (1.1-1.5); ALKALINE PHOSPHATASE 133 IU/L (46-116); ANION GAP 4 (8-16); ASPARTATE AMINO TRANSFERASE 47 U/L (10-37); BILIRUBIN,TOTAL 1.1 MG/DL (0.1-1.0); BLOOD UREA NITROGEN 19 MG/DL (7-18); BUN/CREATININE RATIO 17.9 (5.4-32.0); CALCIUM 8.1 MG/DL (8.5-10.1); CHLORIDE 103 MMOL/L (99-107); CREATININE 1.06 MG/DL (0.60-1.10); GLUCOSE 182 MG/DL (70-104); MAGNESIUM 1.4 MG/DL (1.5-2.4); PHOSPHORUS 2.7 MG/DL (2.3-4.5); POTASSIUM 3.3 MMOL/L (3.5-5.1); SODIUM 147 MMOL/L (135-145); TOTAL CARBON DIOXIDE 39.6 MMOL/L (24-32); TOTAL PROTEIN 7.3 G/DL (6.4-8.2); eGFR 71 ML/MIN
[2022-02-25 04:49] LABS: BASOPHILS % (AUTO) 0.4 % (0-1); EOSINOPHILS # (AUTO) 0.4 X10'3 (0-0.9); EOSINOPHILS % (AUTO) 4.1 % (0-6); HEMATOCRIT 35.6 % (42.0-52.0); LYMPHOCYTES # (AUTO) 0.6 X10'3 (1.1-4.8); LYMPHOCYTES % (AUTO) 6.9 % (21-51); MEAN CORPUSCULAR HEMOGLOBIN 27.1 PG (27.0-31.0); MEAN CORPUSCULAR VOLUME 87.4 FL (78-98); MEAN PLATELET VOLUME 9.4 FL (7.4-10.4); MONOCYTES % (AUTO) 10.9 % (2-12); NEUTROPHILS % (AUTO) 77.7 % (42-75); PLATELET COUNT 92 X10'3 (140-440); RED BLOOD COUNT 4.08 X10'6 (4.70-6.10); RED CELL DISTRIBUTION WIDTH 19.2 % (11.5-14.5)
[2022-02-25] MEDS: POTASSIUM BICARB 20meq eff tab 20 MEQ TABLET.EFF OGT PRN ×2 (05:39→16:05)
[2022-02-25] MEDS: magnesium 2GM in 50ml NS 50 ML IV PRN ×2 (05:40→07:40)
[2022-02-25] MEDS: levoTHYROXINE 112mcg tablet OGT SCH (07:39)
[2022-02-25] MEDS: clopidogrel 75mg tablet OGT SCH (07:39)
[2022-02-25] MEDS: lansoprazole 15mg solutab OGT SCH (07:39)
[2022-02-25] MEDS: OMEGA-3/DHA/EPA/FISH OIL 1 EACH CAPSULE.DR PO SCH (07:39)
[2022-02-25] MEDS: aspirin 325mg tablet OGT SCH (07:39)
[2022-02-25] MEDS: carvedilol 6.25mg tablet OGT SCH ×2 (07:39→19:53)
[2022-02-25] MEDS: levoTHYROXINE 25mcg tablet OGT SCH (07:39)
[2022-02-25] MEDS: docusate sodium 100mg/10ml UD cup OGT SCH ×2 (07:39→19:53)
[2022-02-25] MEDS: ESCITALOPRAM OXALATE 5 MG TABLET OGT SCH (07:39)
[2022-02-25] MEDS: atorvastatin 20mg tablet OGT SCH (07:39)
[2022-02-25] MEDS: amiodarone 100mg tablet OGT SCH (07:40)
[2022-02-25] MEDS: azithromycin/NS 500mg/250ml 250 ML IV SCH (08:32)
[2022-02-25] MEDS: mineral oil/petrolatum, white cream 113gm jar TP SCH ×2 (08:33→20:06)
[2022-02-25] MEDS: albumin (human) 25% 100 ML IV solution IV SCH ×3 (09:19→23:46)
[2022-02-25] MEDS: caffeine citrate injection 60 MG in dextrose 5%-water 50ml 50 ML IV SCH ×2 (10:07→16:31)
[2022-02-25] MEDS: VANCOmycin 1250MG/NS 250ml Bag 250 ML IV SCH ×2 (10:18→21:54)
[2022-02-25] MEDS ORDERED: ipratropium/albuterol 3ml nebule ONE (11:07)
[2022-02-25] MEDS: ipratropium/albuterol 3ml nebule NEB SCH ×4 (11:15→23:07)
[2022-02-25] MEDS: FENTANYL-0.9 % NACL/PF 100 ML IV SCH (11:24)
--- NOTE | 2022-02-25 13:17 | NUR ---
Kalani here at bedside.
[2022-02-25] MEDS: acetaminophen 325mg/10.15ml oral unit dose solution OGT PRN ×2 (16:04→21:50)
--- NOTE | 2022-02-25 16:28 | NUR ---
Medicated with Tylenol for fever.
--- NOTE | 2022-02-25 16:55 | NUR ---
Dr. Galindo spoke with pt's [facility]. plan of care.
--- NOTE | 2022-02-25 18:11 | NUR ---
Problems reprioritized. Patient report given, questions answered & plan of care reviewed with Juliann EWING.
--- NOTE | 2022-02-25 18:37 | NUR ---
Patient in room CICU 2008. I have received report from Letty EWING and had the opportunity to ask questions and assume patient care.
[2022-02-25] MEDS: Melatonin 3mg tablet OGT SCH (19:58)
[2022-02-25] MEDS: insulin glargine (Lantus) pen - multi-dose SQ SCH (20:05)
[2022-02-25] MEDS: polyethylene glycol 3350 17gm powd pack OGT SCH (20:07)
[2022-02-25] MEDS ORDERED: VANCOMYCIN LEVEL IV ONE (21:30)
[2022-02-26] VITALS (53 sets, daily range): BP systolic 106–136; BP diastolic 53–72
[2022-02-26] MEDS: caffeine citrate injection 60 MG in dextrose 5%-water 50ml 50 ML IV SCH (00:50)
[2022-02-26] MEDS: piperacillin/tazo 3.375gm/50ml 50 ML IV SCH ×4 (01:47→20:49)
[2022-02-26] MEDS: insulin regular, human U-100 3ml vial - multi-dose SQ SCH ×3 (01:49→14:24)
[2022-02-26 02:06] LABS: BASOPHILS % (AUTO) 0.4 % (0-1); EOSINOPHILS # (AUTO) 0.3 X10'3 (0-0.9); EOSINOPHILS % (AUTO) 4.3 % (0-6); HEMATOCRIT 34.5 % (42.0-52.0); HEMOGLOBIN 10.7 g/dl (14.0-17.9); LYMPHOCYTES # (AUTO) 0.6 X10'3 (1.1-4.8); LYMPHOCYTES % (AUTO) 7.4 % (21-51); MEAN CORPUSCULAR HEMOGLOBIN 27.1 PG (27.0-31.0); MEAN CORPUSCULAR HGB CONC 31.1 g/dL (33.0-36.5); MEAN CORPUSCULAR VOLUME 87.2 FL (78-98); MEAN PLATELET VOLUME 10.9 FL (7.4-10.4); MONOCYTES # (AUTO) 0.9 X10'3 (0-0.9); MONOCYTES % (AUTO) 11.8 % (2-12); NEUTROPHILS # (AUTO) 6.1 X10'3 (1.8-7.7); NEUTROPHILS % (AUTO) 76.1 % (42-75); PLATELET COUNT 110 X10'3 (140-440); RED BLOOD COUNT 3.96 X10'6 (4.70-6.10); RED CELL DISTRIBUTION WIDTH 19.2 % (11.5-14.5)
[2022-02-26] MEDS: FENTANYL-0.9 % NACL/PF 100 ML IV SCH ×2 (02:12→18:15)
[2022-02-26 02:24] LABS: ALANINE AMINOTRANSFERASE 23 U/L (12-78); ALBUMIN 2.6 G/DL (3.4-5.0); ALBUMIN/GLOBULIN RATIO 0.5 (1.1-1.5); ALKALINE PHOSPHATASE 119 IU/L (46-116); ANION GAP 10 (8-16); ASPARTATE AMINO TRANSFERASE 52 U/L (10-37); BILIRUBIN,TOTAL 1.1 MG/DL (0.1-1.0); BLOOD UREA NITROGEN 19 MG/DL (7-18); BUN/CREATININE RATIO 18.4 (5.4-32.0); CALCIUM 8.4 MG/DL (8.5-10.1); CHLORIDE 103 MMOL/L (99-107); CREATININE 1.03 MG/DL (0.60-1.10); GLUCOSE 166 MG/DL (70-104); MAGNESIUM 1.8 MG/DL (1.5-2.4); PHOSPHORUS 3.1 MG/DL (2.3-4.5); POTASSIUM 3.5 MMOL/L (3.5-5.1); SODIUM 154 MMOL/L (135-145); TOTAL PROTEIN 7.6 G/DL (6.4-8.2); eGFR 73 ML/MIN
[2022-02-26 02:27] LABS: TOTAL CARBON DIOXIDE 40.9 MMOL/L (24-32)
[2022-02-26] MEDS ORDERED: acetaminophen 1,000mg/100ml IV 100 ML IV ONE (03:10)
[2022-02-26] MEDS: ipratropium/albuterol 3ml nebule NEB SCH ×6 (03:11→23:09)
[2022-02-26 03:54] LABS: ABG BASE EXCESS 12.6 mmol/L (-2.0-2.0); ABG HCO3 39.4 mmol/L (22.0-26.0); ABG OXYGEN SATURATION 93.7 % (94-97); ABG PCO2 (T) 66.1 mmHg (35.0-48.0); ABG PO2 (T) 80.6 mmHg (75.0-100.0); FCOHb 0.7 % (0.0-3.9); FMetHb 0.3 % (0.0-1.5); FO2Hb 92.8 % (94-97); PATIENT TEMPERATURE 38.5; PEEP 5 cm H2O; RESPIRATORY RATE 18 b/min; TIDAL VOLUME 450 mL; TOTAL HEMOGLOBIN 11.9 G/dl (14.0-18.0)
--- NOTE | 2022-02-26 06:10 | NUR ---
Problems reprioritized. Patient report given, questions answered & plan of care reviewed with Maryann EWING.
--- NOTE | 2022-02-26 06:15 | NUR ---
Patient in room CICU 2008. I have received report from Juliann EWING and had the opportunity to ask questions and assume patient care.
[2022-02-26] MEDS: NORepinephrine inj. 32 MG in normal saline 250ml IV soln 218 ML IV SCH (07:14)
[2022-02-26] MEDS: midazolam 100mg in NS 100ml 100 ML IV PRN ×2 (07:21→21:00)
[2022-02-26] MEDS: carvedilol 6.25mg tablet OGT SCH ×3 (07:26→20:49)
[2022-02-26] MEDS: albumin (human) 25% 100 ML IV solution IV SCH ×2 (07:34→16:06)
[2022-02-26] MEDS: ESCITALOPRAM OXALATE 5 MG TABLET OGT SCH (07:39)
[2022-02-26] MEDS: clopidogrel 75mg tablet OGT SCH (07:40)
[2022-02-26] MEDS: lansoprazole 15mg solutab OGT SCH (07:40)
[2022-02-26] MEDS: docusate sodium 100mg/10ml UD cup OGT SCH ×2 (07:41→20:00)
[2022-02-26] MEDS: amiodarone 100mg tablet OGT SCH (07:41)
[2022-02-26] MEDS: atorvastatin 20mg tablet OGT SCH (07:41)
[2022-02-26] MEDS: aspirin 325mg tablet OGT SCH (07:41)
[2022-02-26] MEDS: levoTHYROXINE 112mcg tablet OGT SCH (07:41)
[2022-02-26] MEDS: levoTHYROXINE 25mcg tablet OGT SCH (07:41)
[2022-02-26] MEDS: mineral oil/petrolatum, white cream 113gm jar TP SCH (07:42)
[2022-02-26] MEDS: OMEGA-3/DHA/EPA/FISH OIL 1 EACH CAPSULE.DR PO SCH (07:46)
[2022-02-26] MEDS: acetaminophen 325mg/10.15ml oral unit dose solution OGT PRN (09:06)
[2022-02-26] MEDS ORDERED: VANCOMYCIN LEVEL IV ONE (09:30)
[2022-02-26 10:22] LABS: ABG BASE EXCESS 13.9 mmol/L (-2.0-2.0); ABG HCO3 40.9 mmol/L (22.0-26.0); ABG PCO2 (T) 69.1 mmHg (35.0-48.0); FCOHb 0.5 % (0.0-3.9); FMetHb 0.3 % (0.0-1.5); FO2Hb 91.3 % (94-97); PATIENT TEMPERATURE 38.8; PEEP 8 cm H2O; RESPIRATORY RATE 20 b/min; TIDAL VOLUME 450 mL; TOTAL HEMOGLOBIN 11.7 G/dl (14.0-18.0)
[2022-02-26] MEDS: VANCOmycin 1250MG/NS 250ml Bag 250 ML IV SCH (10:38)
--- NOTE | 2022-02-26 12:01 | NUR ---
F/u 02/26: Pt w/ possible emesis this AM per RN; OG feeds held now to suction per MD. -250ml stool yesterday receiving routine bowel regimen per EMR; will monitor for further EN tolerance. Addendum: 02/26/22 at [address] Amended: Links added.
[2022-02-26 15:24] LABS: ANTINUCLEAR ANTIBODIES Negative (Negative)
--- NOTE | 2022-02-26 18:18 | NUR ---
Report given to this RN from Lupe Wolf. Drips of fentanyl, versed, and levo verified. Pt in no acute distress.
--- NOTE | 2022-02-26 18:18 | NUR ---
Problems reprioritized. Patient report given, questions answered & plan of care reviewed with Keeley EWING.
[2022-02-26] MEDS: Melatonin 3mg tablet OGT SCH (20:50)
[2022-02-26] MEDS: polyethylene glycol 3350 17gm powd pack OGT SCH (21:00)
[2022-02-26] MEDS: insulin glargine (Lantus) pen - multi-dose SQ SCH (21:05)
[2022-02-26] MEDS: VANCOMYCIN 1,500MG in D5W 500ML IVPB IV SCH (22:34)
[2022-02-27] VITALS (54 sets, daily range): BP systolic 91–173; BP diastolic 51–169
[2022-02-27] MEDS: albumin (human) 25% 100 ML IV solution IV SCH ×2 (00:44→07:30)
[2022-02-27] MEDS: mineral oil/petrolatum, white cream 113gm jar TP SCH ×3 (01:31→20:51)
[2022-02-27] MEDS: piperacillin/tazo 3.375gm/50ml 50 ML IV SCH ×4 (01:59→20:49)
[2022-02-27] MEDS: ipratropium/albuterol 3ml nebule NEB SCH ×6 (03:12→23:09)
[2022-02-27 03:38] LABS: BASOPHILS % (AUTO) 0.4 % (0-1); EOSINOPHILS # (AUTO) 0.2 X10'3 (0-0.9); EOSINOPHILS % (AUTO) 3.3 % (0-6); HEMATOCRIT 33.5 % (42.0-52.0); HEMOGLOBIN 10.5 g/dl (14.0-17.9); LYMPHOCYTES # (AUTO) 0.6 X10'3 (1.1-4.8); LYMPHOCYTES % (AUTO) 9.5 % (21-51); MEAN CORPUSCULAR HEMOGLOBIN 27.4 PG (27.0-31.0); MEAN CORPUSCULAR HGB CONC 31.5 g/dL (33.0-36.5); MEAN CORPUSCULAR VOLUME 87.2 FL (78-98); MEAN PLATELET VOLUME 8.5 FL (7.4-10.4); MONOCYTES # (AUTO) 0.6 X10'3 (0-0.9); MONOCYTES % (AUTO) 10.5 % (2-12); NEUTROPHILS # (AUTO) 4.5 X10'3 (1.8-7.7); NEUTROPHILS % (AUTO) 76.3 % (42-75); PLATELET COUNT 73 X10'3 (140-440); RED BLOOD COUNT 3.84 X10'6 (4.70-6.10); RED CELL DISTRIBUTION WIDTH 19.3 % (11.5-14.5); WHITE BLOOD COUNT 5.9 X10'3 (4.5-11.0)
[2022-02-27 03:42] LABS: ABG BASE EXCESS 16.5 mmol/L (-2.0-2.0); ABG HCO3 41.8 mmol/L (22.0-26.0); ABG OXYGEN SATURATION 94.3 % (94-97); ABG PCO2 (T) 55.4 mmHg (35.0-48.0); ABG PO2 (T) 74.1 mmHg (75.0-100.0); FCOHb 0.5 % (0.0-3.9); FMetHb 0.1 % (0.0-1.5); FO2Hb 93.7 % (94-97); PATIENT TEMPERATURE 37.6; PEEP 8 cm H2O; RESPIRATORY RATE 20 b/min; TIDAL VOLUME 500 mL; TOTAL HEMOGLOBIN 11.3 G/dl (14.0-18.0)
[2022-02-27 03:56] LABS: ALANINE AMINOTRANSFERASE 21 U/L (12-78); ALBUMIN 2.7 G/DL (3.4-5.0); ALBUMIN/GLOBULIN RATIO 0.6 (1.1-1.5); ALKALINE PHOSPHATASE 105 IU/L (46-116); ANION GAP 7 (8-16); ASPARTATE AMINO TRANSFERASE 54 U/L (10-37); BILIRUBIN,TOTAL 1.4 MG/DL (0.1-1.0); BLOOD UREA NITROGEN 20 MG/DL (7-18); BUN/CREATININE RATIO 20.6 (5.4-32.0); CALCIUM 8.9 MG/DL (8.5-10.1); CHLORIDE 105 MMOL/L (99-107); CREATININE 0.97 MG/DL (0.60-1.10); GLUCOSE 132 MG/DL (70-104); MAGNESIUM 1.8 MG/DL (1.5-2.4); PHOSPHORUS 2.5 MG/DL (2.3-4.5); POTASSIUM 3.3 MMOL/L (3.5-5.1); SODIUM 149 MMOL/L (135-145); TOTAL CARBON DIOXIDE 37.5 MMOL/L (24-32); TOTAL PROTEIN 7.5 G/DL (6.4-8.2); TRIGLYCERIDES 58 MG/DL (20-135); eGFR 79 ML/MIN
[2022-02-27] MEDS: potassium CL 10mEq/100ml bag 100 ML IV PRN ×4 (04:25→14:10)
--- NOTE | 2022-02-27 06:31 | NUR ---
Report given to KAYLIN Wolf. Drips of fentanyl, versed, and levophed verified. Pt in no acute distress at time of handoff.
[2022-02-27] MEDS: docusate sodium 100mg/10ml UD cup OGT SCH ×2 (07:20→20:00)
[2022-02-27] MEDS: OMEGA-3/DHA/EPA/FISH OIL 1 EACH CAPSULE.DR PO SCH (07:20)
[2022-02-27] MEDS: ESCITALOPRAM OXALATE 5 MG TABLET OGT SCH (07:31)
[2022-02-27] MEDS: levoTHYROXINE 112mcg tablet OGT SCH (07:31)
[2022-02-27] MEDS: amiodarone 100mg tablet OGT SCH (07:31)
[2022-02-27] MEDS: clopidogrel 75mg tablet OGT SCH (07:31)
[2022-02-27] MEDS: levoTHYROXINE 25mcg tablet OGT SCH (07:31)
[2022-02-27] MEDS: carvedilol 6.25mg tablet OGT SCH ×2 (07:31→20:44)
[2022-02-27] MEDS: atorvastatin 20mg tablet OGT SCH (07:31)
[2022-02-27] MEDS: lansoprazole 15mg solutab OGT SCH (07:33)
[2022-02-27] MEDS: aspirin 325mg tablet OGT SCH (07:33)
[2022-02-27] MEDS: FENTANYL-0.9 % NACL/PF 100 ML IV SCH ×2 (07:44→20:50)
[2022-02-27] MEDS: midazolam 100mg in NS 100ml 100 ML IV PRN ×2 (07:44→19:18)
[2022-02-27 08:43] LABS: HBSAG SCREEN Negative (Negative)
[2022-02-27] MEDS ORDERED: potassium Cl 10 mEq/100mL bag IV ONE ×2 (09:25)
[2022-02-27] MEDS ORDERED: furosemide 40mg/4ml inj IV ONE (09:25)
--- NOTE | 2022-02-27 10:00 | NUR ---
Patient's temp dropped to 35.9, bear breegger placed on patient.
[2022-02-27] MEDS ORDERED: scopolamine 1.5mg patch.TD72 (72-hour patch) TD SCH (10:20)
--- NOTE | 2022-02-27 10:30 | NUR ---
In rounds discussed with Dr. Rodriguez about K of 3.3 replacement. wanted K replaced per protocol and 20meq of additional IV K due to lasix being started.
--- NOTE | 2022-02-27 11:06 | NUR ---
Reassessment: Noted new orders for TF to be at trickle of 10ml/hr. RN states that pt had emesis yesterday 02/26 and wants TF at trickle for now. Residuals have been mostly less than 20ml while receiving nutrition support. Consider post pyloric feeding and advancing TF back to original goal of 90ml/hr. Noted serum Na 149 today, MD okay w/ increasing water flush to 200ml Q4H. Noted w/ 300ml stool output today receiving routine bowel care. Will continue to monitor. Recommendations: 1) Trickle TF per MD at 10ml/hr. Recommend post-pyloric feeding if emesis of concern and advancing back to goal of Vital HP with 90 mL/hr goal to provide 2160 mL total volume/day, 2160 kcal, 189 g protein, and 1806 mL water 2) Additional 200 mL water flush Q4H; monitor serum Na 3) Prealbumin q Saturday/ 4) Daily scaled weights 5) Routine bowel care 6) Advance to heart healthy diet as medically indicated following extubation Addendum: 02/27/22 at [address] Amended: Links added.
[2022-02-27] MEDS: scopolamine 1mg/72 hr patch TD SCH (11:21)
[2022-02-27] MEDS: VANCOMYCIN 1,500MG in D5W 500ML IVPB IV SCH ×2 (11:31→22:46)
[2022-02-27] MEDS: insulin regular, human U-100 3ml vial - multi-dose SQ SCH (14:18)
--- NOTE | 2022-02-27 15:51 | NUR ---
Informed Dr. Rodriguez that pt vomiting tube feed, tube feed on hold. ordered KUB. Also informed that pt was bradycardic at 52 and had to restart levophed for drop in BP to 70s.
[2022-02-27] MEDS: NORepinephrine 8mg/ 250ml NS 250 ML IV SCH ×3 (17:51→18:41)
--- NOTE | 2022-02-27 18:30 | NUR ---
Problems reprioritized. Patient report given, questions answered & plan of care reviewed with Keeley EWING.
[2022-02-27] MEDS: Melatonin 3mg tablet OGT SCH (20:45)
[2022-02-27] MEDS: insulin glargine (Lantus) pen - multi-dose SQ SCH (20:53)
[2022-02-27] MEDS: polyethylene glycol 3350 17gm powd pack OGT SCH (21:00)
[2022-02-28] VITALS (34 sets, daily range): BP systolic 92–126; BP diastolic 48–72
[2022-02-28] MEDS: scopolamine 1mg/72 hr patch TD SCH (01:21)
[2022-02-28] MEDS: ipratropium/albuterol 3ml nebule NEB SCH ×6 (03:19→23:19)
[2022-02-28] MEDS: piperacillin/tazo 3.375gm/50ml 50 ML IV SCH ×4 (03:20→20:44)
[2022-02-28 03:55] LABS: ABG BASE EXCESS 11.5 mmol/L (-2.0-2.0); ABG HCO3 36.8 mmol/L (22.0-26.0); ABG OXYGEN SATURATION 93.9 % (94-97); ABG PCO2 (T) 52.3 mmHg (35.0-48.0); ABG PO2 (T) 76.2 mmHg (75.0-100.0); FCOHb 0.5 % (0.0-3.9); FMetHb 0.1 % (0.0-1.5); FO2Hb 93.3 % (94-97); PATIENT TEMPERATURE 37.5; PEEP 8 cm H2O; RESPIRATORY RATE 20 b/min; TIDAL VOLUME 500 mL; TOTAL HEMOGLOBIN 11.6 G/dl (14.0-18.0)
[2022-02-28 04:16] LABS: BASOPHILS # (AUTO) 0.1 X10'3 (0-0.2); BASOPHILS % (AUTO) 0.9 % (0-1); EOSINOPHILS # (AUTO) 0.3 X10'3 (0-0.9); EOSINOPHILS % (AUTO) 4.4 % (0-6); HEMATOCRIT 33.5 % (42.0-52.0); HEMOGLOBIN 10.6 g/dl (14.0-17.9); LYMPHOCYTES # (AUTO) 0.6 X10'3 (1.1-4.8); LYMPHOCYTES % (AUTO) 8.6 % (21-51); MEAN CORPUSCULAR HEMOGLOBIN 27.8 PG (27.0-31.0); MEAN CORPUSCULAR HGB CONC 31.7 g/dL (33.0-36.5); MEAN CORPUSCULAR VOLUME 87.5 FL (78-98); MEAN PLATELET VOLUME 10.4 FL (7.4-10.4); MONOCYTES # (AUTO) 0.5 X10'3 (0-0.9); MONOCYTES % (AUTO) 7.9 % (2-12); NEUTROPHILS # (AUTO) 5.1 X10'3 (1.8-7.7); NEUTROPHILS % (AUTO) 78.2 % (42-75); PLATELET COUNT 92 X10'3 (140-440); RED BLOOD COUNT 3.83 X10'6 (4.70-6.10); RED CELL DISTRIBUTION WIDTH 19.1 % (11.5-14.5); WHITE BLOOD COUNT 6.5 X10'3 (4.5-11.0)
[2022-02-28 04:27] LABS: ALANINE AMINOTRANSFERASE 23 U/L (12-78); ALBUMIN 2.4 G/DL (3.4-5.0); ALBUMIN/GLOBULIN RATIO 0.5 (1.1-1.5); ALKALINE PHOSPHATASE 105 IU/L (46-116); ANION GAP 6 (8-16); ASPARTATE AMINO TRANSFERASE 58 U/L (10-37); BILIRUBIN,TOTAL 1.1 MG/DL (0.1-1.0); BLOOD UREA NITROGEN 24 MG/DL (7-18); BUN/CREATININE RATIO 21.4 (5.4-32.0); CALCIUM 8.7 MG/DL (8.5-10.1); CHLORIDE 106 MMOL/L (99-107); CREATININE 1.12 MG/DL (0.60-1.10); GLUCOSE 117 MG/DL (70-104); MAGNESIUM 1.9 MG/DL (1.5-2.4); PHOSPHORUS 4.3 MG/DL (2.3-4.5); POTASSIUM 3.6 MMOL/L (3.5-5.1); SODIUM 149 MMOL/L (135-145); TOTAL CARBON DIOXIDE 37.4 MMOL/L (24-32); TOTAL PROTEIN 7.2 G/DL (6.4-8.2); eGFR 67 ML/MIN
[2022-02-28] MEDS: midazolam 100mg in NS 100ml 100 ML IV PRN ×2 (04:35→23:59)
[2022-02-28 04:50] LABS: ANISOCYTOSIS 2+; PLATELET ESTIMATE DECREASED
[2022-02-28 04:51] LABS: POIKILOCYTOSIS 1+
--- NOTE | 2022-02-28 06:30 | NUR ---
1800 Report given to this RN from Maryann. Kylie verified. Pt in no distress. . [address] Lang to inform regards to pt previously vomiting, KUB done and still remaining NPO. No orders given. 619 Report given to oncoming RN, Tyshawn. Kylie verified. Questions answered. Pt in no acute distress at time of handoff.
[2022-02-28] MEDS: atorvastatin 20mg tablet OGT SCH (07:53)
[2022-02-28] MEDS: docusate sodium 100mg/10ml UD cup OGT SCH ×2 (07:53→20:44)
[2022-02-28] MEDS: carvedilol 6.25mg tablet OGT SCH ×2 (07:53→20:44)
[2022-02-28] MEDS: OMEGA-3/DHA/EPA/FISH OIL 1 EACH CAPSULE.DR PO SCH (07:53)
[2022-02-28] MEDS: clopidogrel 75mg tablet OGT SCH (07:53)
[2022-02-28] MEDS: lansoprazole 15mg solutab OGT SCH (07:53)
[2022-02-28] MEDS: levoTHYROXINE 25mcg tablet OGT SCH (07:53)
[2022-02-28] MEDS: aspirin 325mg tablet OGT SCH (07:54)
[2022-02-28] MEDS: amiodarone 100mg tablet OGT SCH (07:54)
[2022-02-28] MEDS: levoTHYROXINE 112mcg tablet OGT SCH (07:54)
[2022-02-28] MEDS: ESCITALOPRAM OXALATE 5 MG TABLET OGT SCH (07:54)
[2022-02-28] MEDS: mineral oil/petrolatum, white cream 113gm jar TP SCH ×2 (07:55→20:44)
[2022-02-28] MEDS ORDERED: VANCOMYCIN LEVEL IV ONE (09:30)
[2022-02-28] MEDS: VANCOMYCIN 1,500MG in D5W 500ML IVPB IV SCH (10:00)
--- NOTE | 2022-02-28 10:59 | NUR ---
F/u 02/27: Pt w/ emesis last night w/ TF held per RN. KUB 02/27 shows OG in GE junction per EMR; NICKY d/w child care team lead who requests corpak for EN w/ trickle feeds to resume once confirmed post-pyloric and EN to advanced as tolerated to goal. Recommendations: 1) Post-pyloric feeds via corpak per MD using Vital HP at 90 mL/hr goal to provide 2160 mL total volume/day, 2160 kcal, 189 g protein, and 1806 mL water 2) Additional 200 mL water flush Q4H per MD; monitor serum Na 3) Prealbumin q Saturday/ 4) Daily scaled weights 5) Routine bowel care 6) Advance to heart healthy diet as medically indicated following extubation Addendum: 02/28/22 at [address] Amended: Links added.
[2022-02-28] MEDS: FENTANYL-0.9 % NACL/PF 100 ML IV SCH ×2 (12:54→23:57)
[2022-02-28] MEDS ORDERED: aspirin 325mg tablet, delayed-release (Ecotrin) PO SCH (14:11)
[2022-02-28] MEDS: VANCOmycin 1250MG/NS 250ml Bag 250 ML IV SCH (15:00)
[2022-02-28] MEDS: metoclopramide 5 mg/ml inj IV SCH (16:07)
--- NOTE | 2022-02-28 18:20 | NUR ---
Patient in room ICU 2040. I have received report from KAYLIN Villagran and had the opportunity to ask questions and assume patient care. Kylie verified.
--- NOTE | 2022-02-28 20:00 | NUR ---
Repeat KUB done at 1946; verified placement; OK to feed
--- NOTE | 2022-02-28 20:36 | NUR ---
Corpak placement verified with KUB and 2nd RN. Okay to feed.
[2022-02-28] MEDS: insulin glargine (Lantus) pen - multi-dose SQ SCH (20:40)
[2022-02-28] MEDS: insulin regular, human U-100 3ml vial - multi-dose SQ SCH (20:42)
[2022-02-28] MEDS: polyethylene glycol 3350 17gm powd pack OGT SCH (20:43)
[2022-02-28] MEDS: Melatonin 3mg tablet OGT SCH (20:44)
[2022-02-28] MEDS: acetaminophen 325mg/10.15ml oral unit dose solution OGT PRN (21:12)
[2022-03-01] VITALS (37 sets, daily range): BP systolic 84–143; BP diastolic 40–83
[2022-03-01] MEDS: NORepinephrine 8mg/ 250ml NS 250 ML IV SCH ×2 (00:06→06:50)
[2022-03-01] MEDS: metoclopramide 5 mg/ml inj IV SCH ×4 (00:07→23:36)
[2022-03-01] MEDS: insulin regular, human U-100 3ml vial - multi-dose SQ SCH ×4 (03:01→20:38)
[2022-03-01] MEDS: ipratropium/albuterol 3ml nebule NEB SCH ×6 (03:18→23:01)
[2022-03-01 03:20] LABS: BASOPHILS % (AUTO) 0.6 % (0-1); EOSINOPHILS # (AUTO) 0.3 X10'3 (0-0.9); EOSINOPHILS % (AUTO) 3.9 % (0-6); HEMATOCRIT 33.7 % (42.0-52.0); HEMOGLOBIN 10.9 g/dl (14.0-17.9); LYMPHOCYTES # (AUTO) 0.7 X10'3 (1.1-4.8); LYMPHOCYTES % (AUTO) 9.1 % (21-51); MEAN CORPUSCULAR HEMOGLOBIN 27.5 PG (27.0-31.0); MEAN CORPUSCULAR HGB CONC 32.2 g/dL (33.0-36.5); MEAN CORPUSCULAR VOLUME 85.4 FL (78-98); MEAN PLATELET VOLUME 10.5 FL (7.4-10.4); MONOCYTES # (AUTO) 0.5 X10'3 (0-0.9); MONOCYTES % (AUTO) 6.7 % (2-12); NEUTROPHILS # (AUTO) 5.7 X10'3 (1.8-7.7); NEUTROPHILS % (AUTO) 79.7 % (42-75); PLATELET COUNT 102 X10'3 (140-440); RED BLOOD COUNT 3.95 X10'6 (4.70-6.10); RED CELL DISTRIBUTION WIDTH 19.2 % (11.5-14.5); WHITE BLOOD COUNT 7.1 X10'3 (4.5-11.0)
[2022-03-01 03:33] LABS: ALANINE AMINOTRANSFERASE 26 U/L (12-78); ALBUMIN 2.2 G/DL (3.4-5.0); ALBUMIN/GLOBULIN RATIO 0.4 (1.1-1.5); ALKALINE PHOSPHATASE 127 IU/L (46-116); ANION GAP 9 (8-16); ASPARTATE AMINO TRANSFERASE 66 U/L (10-37); BLOOD UREA NITROGEN 26 MG/DL (7-18); CHLORIDE 108 MMOL/L (99-107); CREATININE 1.13 MG/DL (0.60-1.10); GLUCOSE 107 MG/DL (70-104); MAGNESIUM 2.1 MG/DL (1.5-2.4); PHOSPHORUS 3.5 MG/DL (2.3-4.5); POTASSIUM 3.2 MMOL/L (3.5-5.1); PREALBUMIN 9.6 MG/DL (19-36); SODIUM 150 MMOL/L (135-145); TOTAL CARBON DIOXIDE 33.4 MMOL/L (24-32); TOTAL PROTEIN 7.2 G/DL (6.4-8.2); TRIGLYCERIDES 74 MG/DL (20-135); eGFR 66 ML/MIN
[2022-03-01] MEDS: piperacillin/tazo 3.375gm/50ml 50 ML IV SCH ×4 (03:38→20:25)
[2022-03-01] MEDS: VANCOmycin 1250MG/NS 250ml Bag 250 ML IV SCH (03:42)
[2022-03-01] MEDS: potassium CL 10mEq/100ml bag 100 ML IV PRN ×2 (04:32→05:24)
[2022-03-01] MEDS: acetaminophen 325mg/10.15ml oral unit dose solution OGT PRN ×3 (05:12→17:16)
--- NOTE | 2022-03-01 06:30 | NUR ---
1800 Report given to this RN from KAYLIN Villagran. Drips verified. Pt in no distress. Overnight Levophed restarted due to low BP. Potassium 3.2 this am and being replaced. 0615 Report given to KAYLIN Villagran. Drips verified. Pt in no acute distress at time of handoff.
[2022-03-01] MEDS: docusate sodium 100mg/10ml UD cup OGT SCH ×2 (08:01→20:00)
[2022-03-01] MEDS: levoTHYROXINE 25mcg tablet OGT SCH (08:01)
[2022-03-01] MEDS: levoTHYROXINE 112mcg tablet OGT SCH (08:02)
[2022-03-01] MEDS: OMEGA-3/DHA/EPA/FISH OIL 1 EACH CAPSULE.DR PO SCH (08:02)
[2022-03-01] MEDS: clopidogrel 75mg tablet OGT SCH (08:02)
[2022-03-01] MEDS: carvedilol 6.25mg tablet OGT SCH ×2 (08:02→20:24)
[2022-03-01] MEDS: atorvastatin 20mg tablet OGT SCH (08:02)
[2022-03-01] MEDS: ESCITALOPRAM OXALATE 5 MG TABLET OGT SCH (08:02)
[2022-03-01] MEDS: amiodarone 100mg tablet OGT SCH (08:03)
[2022-03-01] MEDS: lansoprazole 15mg solutab OGT SCH (08:03)
[2022-03-01] MEDS: mineral oil/petrolatum, white cream 113gm jar TP SCH ×2 (08:03→20:26)
[2022-03-01] MEDS ORDERED: aspirin 325mg tablet OGT SCH (09:54)
[2022-03-01 12:16] LABS: % CD 4 POS. LYMPH 52.3 % (30.8-58.5); ABSOLUTE CD 4 HELPER 262 /uL (359-1519); BASO (ABSOLUTE) 0.1 x10E3/uL (0.0-0.2); BASOS 1 % (Not Estab.); EOS 4 % (Not Estab.); EOS (ABSOLUTE) 0.3 x10E3/uL (0.0-0.4); HEMATOCRIT 38.2 % (37.5-51.0); HEMATOLOGY COMMENTS: Note: (.); HEMOGLOBIN 10.8 g/dL (13.0-17.7); LYMPHS 8 % (Not Estab.); LYMPHS (ABSOLUTE) 0.5 x10E3/uL (0.7-3.1); MCH 27.1 pg (26.6-33.0); MCHC 28.3 g/dL (31.5-35.7); MCV 96 fL (79-97); MONOCYTES 7 % (Not Estab.); MONOCYTES (ABSOLUTE) 0.5 x10E3/uL (0.1-0.9); NEUTROPHILS 80 % (Not Estab.); PLATELETS 84 x10E3/uL (150-450); RBC 3.99 x10E6/uL (4.14-5.80); RDW 17.5 % (11.6-15.4); WBC 6.4 x10E3/uL (3.4-10.8)
[2022-03-01] MEDS: DEXMEDETOMIDINE 400MCG in NORMAL SALINE 100ml IV SCH (12:50)
[2022-03-01] MEDS ORDERED: aspirin 325mg tablet, delayed-release (Ecotrin) PO SCH (14:43)
[2022-03-01] MEDS: Melatonin 3mg tablet OGT SCH (20:24)
[2022-03-01] MEDS: insulin glargine (Lantus) pen - multi-dose SQ SCH (20:36)
[2022-03-01] MEDS: polyethylene glycol 3350 17gm powd pack OGT SCH (21:00)
[2022-03-02] VITALS (31 sets, daily range): BP systolic 86–127; BP diastolic 44–73
[2022-03-02] MEDS: insulin regular, human U-100 3ml vial - multi-dose SQ SCH ×3 (01:38→20:39)
[2022-03-02] MEDS: piperacillin/tazo 3.375gm/50ml 50 ML IV SCH ×4 (01:45→19:28)
[2022-03-02] MEDS ORDERED: VANCOMYCIN LEVEL IV ONE (02:30)
[2022-03-02 03:09] LABS: BASOPHILS % (AUTO) 0.4 % (0-1); EOSINOPHILS # (AUTO) 0.3 X10'3 (0-0.9); EOSINOPHILS % (AUTO) 4.3 % (0-6); HEMATOCRIT 32.5 % (42.0-52.0); HEMOGLOBIN 10.2 g/dl (14.0-17.9); LYMPHOCYTES # (AUTO) 0.4 X10'3 (1.1-4.8); LYMPHOCYTES % (AUTO) 6.6 % (21-51); MEAN CORPUSCULAR HEMOGLOBIN 27.5 PG (27.0-31.0); MEAN CORPUSCULAR HGB CONC 31.4 g/dL (33.0-36.5); MEAN CORPUSCULAR VOLUME 87.7 FL (78-98); MEAN PLATELET VOLUME 10.5 FL (7.4-10.4); MONOCYTES # (AUTO) 0.3 X10'3 (0-0.9); MONOCYTES % (AUTO) 4.7 % (2-12); NEUTROPHILS # (AUTO) 5.5 X10'3 (1.8-7.7); PLATELET COUNT 84 X10'3 (140-440); RED BLOOD COUNT 3.71 X10'6 (4.70-6.10); WHITE BLOOD COUNT 6.6 X10'3 (4.5-11.0)
[2022-03-02 03:25] LABS: ALANINE AMINOTRANSFERASE 28 U/L (12-78); ALBUMIN/GLOBULIN RATIO 0.4 (1.1-1.5); ALKALINE PHOSPHATASE 152 IU/L (46-116); ANION GAP 4 (8-16); ASPARTATE AMINO TRANSFERASE 71 U/L (10-37); BILIRUBIN,TOTAL 0.7 MG/DL (0.1-1.0); BLOOD UREA NITROGEN 24 MG/DL (7-18); BUN/CREATININE RATIO 24.2 (5.4-32.0); CALCIUM 8.5 MG/DL (8.5-10.1); CHLORIDE 109 MMOL/L (99-107); CREATININE 0.99 MG/DL (0.60-1.10); GLUCOSE 147 MG/DL (70-104); PHOSPHORUS 2.7 MG/DL (2.3-4.5); POTASSIUM 3.4 MMOL/L (3.5-5.1); SODIUM 148 MMOL/L (135-145); eGFR 77 ML/MIN
[2022-03-02 03:26] LABS: ABG BASE EXCESS 9.5 mmol/L (-2.0-2.0); ABG HCO3 35.9 mmol/L (22.0-26.0); ABG OXYGEN SATURATION 96.3 % (94-97); ABG PCO2 (T) 57.1 mmHg (35.0-48.0); ABG PO2 (T) 88.2 mmHg (75.0-100.0); FCOHb 0.2 % (0.0-3.9); FMetHb 0.2 % (0.0-1.5); FO2Hb 95.9 % (94-97); PATIENT TEMPERATURE 36.8; PEEP 8 cm H2O; RESPIRATORY RATE 16 b/min; TIDAL VOLUME 500 mL; TOTAL HEMOGLOBIN 11.7 G/dl (14.0-18.0)
[2022-03-02] MEDS: ipratropium/albuterol 3ml nebule NEB SCH ×6 (03:26→23:16)
[2022-03-02 03:51] LABS: PLATELET ESTIMATE DECREASED
[2022-03-02 03:52] LABS: ANISOCYTOSIS 2+; HYPOCHROMASIA 1+; POLYCHROMASIA 1+
[2022-03-02] MEDS: POTASSIUM BICARB 20meq eff tab 20 MEQ TABLET.EFF OGT PRN ×3 (04:04→22:43)
[2022-03-02] MEDS: DEXMEDETOMIDINE 400MCG in NORMAL SALINE 100ml IV SCH ×6 (04:58→23:26)
--- NOTE | 2022-03-02 06:57 | NUR ---
1800 Report given to this RN from KAYLIN Villagran. Fentanyl and precedex drip on hold. Pt was more awake overnight. Fentanyl and precedex restarted. Both were paused at one time due to borderline low bp. They were both restarted later this morning. 0600 Report given to off-going RN. Drips checked. Questions answered. Pt in no acute distress at time of handoff.
[2022-03-02] MEDS: lansoprazole 15mg solutab OGT SCH (08:00)
[2022-03-02] MEDS: docusate sodium 100mg/10ml UD cup OGT SCH ×2 (08:04→19:29)
[2022-03-02] MEDS: levoTHYROXINE 112mcg tablet OGT SCH (08:05)
[2022-03-02] MEDS: amiodarone 100mg tablet OGT SCH (08:05)
[2022-03-02] MEDS: carvedilol 6.25mg tablet OGT SCH ×2 (08:05→19:28)
[2022-03-02] MEDS: ESCITALOPRAM OXALATE 5 MG TABLET OGT SCH (08:05)
[2022-03-02] MEDS: levoTHYROXINE 25mcg tablet OGT SCH (08:05)
[2022-03-02] MEDS: atorvastatin 20mg tablet OGT SCH (08:05)
[2022-03-02] MEDS: OMEGA-3/DHA/EPA/FISH OIL 1 EACH CAPSULE.DR PO SCH (08:05)
[2022-03-02] MEDS: clopidogrel 75mg tablet OGT SCH (08:05)
[2022-03-02] MEDS: metoclopramide 5 mg/ml inj IV SCH ×2 (08:06→16:06)
[2022-03-02] MEDS: mineral oil/petrolatum, white cream 113gm jar TP SCH ×2 (08:07→19:29)
[2022-03-02] MEDS: aspirin 325mg tablet OGT SCH (08:07)
[2022-03-02] MEDS: acetaminophen 325mg/10.15ml oral unit dose solution OGT PRN ×2 (10:41→19:22)
--- NOTE | 2022-03-02 11:21 | NUR ---
F/u 03/02: Pt remains intubated TF advanced to goal and tolerating post-plyoric feeds. Rectal tube -300ml receiving routine colace, reglan, scopalamine Q 72H, and miralax HS per EMR. Will monitor for further EN tolerance and adjustment needs. Recommendations: 1) Post-pyloric feeds via corpak per MD using Vital HP at 90 mL/hr goal to provide 2160 mL total volume/day, 2160 kcal, 189 g protein, and 1806 mL water 2) Additional 200 mL water flush Q4H per MD; monitor serum Na 3) Prealbumin q Saturday/; Daily scaled weights 4) Routine bowel care 5) Advance to heart healthy diet as medically indicated following extubation Addendum: 03/02/22 at [address] Amended: Links added.
[2022-03-02] MEDS: scopolamine 1mg/72 hr patch TD SCH (12:24)
[2022-03-02] MEDS: FENTANYL-0.9 % NACL/PF 100 ML IV SCH (17:00)
[2022-03-02] MEDS ORDERED: morphine 2 MG/ML inj. syringe IV PRN (18:05)
[2022-03-02] MEDS ORDERED: LORazepam 2 mg/ml vial IV PRN (18:05)
--- NOTE | 2022-03-02 18:35 | NUR ---
Patient in room ICU 2040. I have received report from [place] and had the opportunity to ask questions and assume patient care.
[2022-03-02] MEDS: bumetanide 0.25mg/ml 4ml vial IV SCH (19:28)
[2022-03-02] MEDS: midazolam 1 mg/ML 2ml injection IV PRN (19:57)
[2022-03-02] MEDS: polyethylene glycol 3350 17gm powd pack OGT SCH (20:22)
[2022-03-02] MEDS: Melatonin 3mg tablet OGT SCH (20:28)
[2022-03-02] MEDS: quetiapine 100mg tablet PO SCH (20:28)
[2022-03-02] MEDS: insulin glargine (Lantus) pen - multi-dose SQ SCH (20:38)
[2022-03-03] VITALS (29 sets, daily range): BP systolic 84–126; BP diastolic 45–90
[2022-03-03] MEDS: metoclopramide 5 mg/ml inj IV SCH ×2 (00:19→07:53)
[2022-03-03] MEDS: piperacillin/tazo 3.375gm/50ml 50 ML IV SCH ×4 (02:08→19:48)
[2022-03-03] MEDS: insulin regular, human U-100 3ml vial - multi-dose SQ SCH ×4 (02:09→19:59)
[2022-03-03 02:19] LABS: BASOPHILS % (AUTO) 0.5 % (0-1); EOSINOPHILS # (AUTO) 0.3 X10'3 (0-0.9); EOSINOPHILS % (AUTO) 4.4 % (0-6); HEMATOCRIT 32.2 % (42.0-52.0); HEMOGLOBIN 10.1 g/dl (14.0-17.9); LYMPHOCYTES # (AUTO) 0.7 X10'3 (1.1-4.8); LYMPHOCYTES % (AUTO) 12.4 % (21-51); MEAN CORPUSCULAR HEMOGLOBIN 27.7 PG (27.0-31.0); MEAN CORPUSCULAR HGB CONC 31.3 g/dL (33.0-36.5); MEAN CORPUSCULAR VOLUME 88.6 FL (78-98); MEAN PLATELET VOLUME 11.6 FL (7.4-10.4); MONOCYTES # (AUTO) 0.3 X10'3 (0-0.9); MONOCYTES % (AUTO) 4.8 % (2-12); NEUTROPHILS # (AUTO) 4.5 X10'3 (1.8-7.7); NEUTROPHILS % (AUTO) 77.9 % (42-75); PLATELET COUNT 104 X10'3 (140-440); RED BLOOD COUNT 3.64 X10'6 (4.70-6.10); RED CELL DISTRIBUTION WIDTH 18.7 % (11.5-14.5); WHITE BLOOD COUNT 5.8 X10'3 (4.5-11.0)
[2022-03-03 02:27] LABS: ALANINE AMINOTRANSFERASE 33 U/L (12-78); ALBUMIN/GLOBULIN RATIO 0.4 (1.1-1.5); ALKALINE PHOSPHATASE 150 IU/L (46-116); ANION GAP 5 (8-16); ASPARTATE AMINO TRANSFERASE 69 U/L (10-37); BILIRUBIN,TOTAL 0.5 MG/DL (0.1-1.0); BLOOD UREA NITROGEN 22 MG/DL (7-18); BUN/CREATININE RATIO 19.6 (5.4-32.0); CALCIUM 8.5 MG/DL (8.5-10.1); CHLORIDE 113 MMOL/L (99-107); CREATININE 1.12 MG/DL (0.60-1.10); GLUCOSE 158 MG/DL (70-104); MAGNESIUM 2.1 MG/DL (1.5-2.4); PHOSPHORUS 2.4 MG/DL (2.3-4.5); POTASSIUM 3.9 MMOL/L (3.5-5.1); SODIUM 154 MMOL/L (135-145); TOTAL CARBON DIOXIDE 36.4 MMOL/L (24-32); TOTAL PROTEIN 7.2 G/DL (6.4-8.2); TRIGLYCERIDES 73 MG/DL (20-135); eGFR 67 ML/MIN
[2022-03-03 03:04] LABS: ABG BASE EXCESS 13.4 mmol/L (-2.0-2.0); ABG HCO3 39.4 mmol/L (22.0-26.0); ABG OXYGEN SATURATION 93.9 % (94-97); ABG PCO2 (T) 62.6 mmHg (35.0-48.0); ABG PO2 (T) 82.7 mmHg (75.0-100.0); ALLEN'S TEST POSITIVE; FMetHb 0.2 % (0.0-1.5); FO2Hb 93.7 % (94-97); PATIENT TEMPERATURE 38.9; PEEP 10 cm H2O; RESPIRATORY RATE 16 b/min; TIDAL VOLUME 500 mL; TOTAL HEMOGLOBIN 11.2 G/dl (14.0-18.0)
[2022-03-03] MEDS: ipratropium/albuterol 3ml nebule NEB SCH ×6 (03:11→23:36)
[2022-03-03] MEDS: acetaminophen 325mg/10.15ml oral unit dose solution OGT PRN ×3 (03:26→19:17)
[2022-03-03] MEDS: midazolam 1 mg/ML 2ml injection IV PRN (03:50)
[2022-03-03] MEDS: docusate sodium 100mg/10ml UD cup OGT SCH ×2 (07:52→18:58)
[2022-03-03] MEDS: ESCITALOPRAM OXALATE 5 MG TABLET OGT SCH (07:52)
[2022-03-03] MEDS: bumetanide 0.25mg/ml 4ml vial IV SCH ×2 (07:52→19:45)
[2022-03-03] MEDS: levoTHYROXINE 112mcg tablet OGT SCH (07:53)
[2022-03-03] MEDS: OMEGA-3/DHA/EPA/FISH OIL 1 EACH CAPSULE.DR PO SCH (07:53)
[2022-03-03] MEDS: carvedilol 6.25mg tablet OGT SCH ×2 (07:53→19:45)
[2022-03-03] MEDS: levoTHYROXINE 25mcg tablet OGT SCH (07:53)
[2022-03-03] MEDS: amiodarone 100mg tablet OGT SCH (07:53)
[2022-03-03] MEDS: lansoprazole 15mg solutab OGT SCH (07:53)
[2022-03-03] MEDS: clopidogrel 75mg tablet OGT SCH (07:53)
[2022-03-03] MEDS: atorvastatin 20mg tablet OGT SCH (07:54)
[2022-03-03] MEDS: mineral oil/petrolatum, white cream 113gm jar TP SCH ×2 (07:54→18:58)
[2022-03-03] MEDS: aspirin 325mg tablet OGT SCH (07:54)
[2022-03-03] MEDS: morphine 2 MG/ML inj. syringe IV PRN ×4 (12:14→20:47)
--- NOTE | 2022-03-03 12:17 | NUR ---
extubated at 1210 straight to BiPap. precedex was increased per MD and morphine was given. Pt tolerating well so far. Restraints removed.
--- NOTE | 2022-03-03 12:32 | NUR ---
Pt extubated to Bipap tolerating at this time, MD Tracy aware. Addendum: 03/03/22 at 1232 [address] RT Amended: Links added.
[2022-03-03] MEDS: DEXMEDETOMIDINE 400MCG in NORMAL SALINE 100ml IV SCH ×5 (13:40→23:53)
--- NOTE | 2022-03-03 15:30 | NUR ---
Took over pt from Jose at 1530. Asked Dr. Gordillo about wanting to clamp chest tube x24 hr. He agreed it'd probably to much clamping the tube and extubating in one day so for now we will not clamp his chest tube. Will re-eval tomorrow for this.
[2022-03-03] MEDS: LORazepam 2 mg/ml vial IV PRN ×2 (17:11→19:29)
[2022-03-03] MEDS: polyethylene glycol 3350 17gm powd pack OGT SCH (18:58)
--- NOTE | 2022-03-03 19:34 | NUR ---
Re-hooked up pt's bladder temp and it read 39.4. He had been having temps prior but his bladder temp stopped working during the day. His axilliary temp at the start of shift was only in the 38s, I checked an oral temp to confirm and it was 39.1. Tylenol given, ice packs applied. Unable to find green cooling blanket for the [place] cooler at this time. Will continue to monitor and search for a cooling blanket.
[2022-03-03] MEDS: insulin glargine (Lantus) pen - multi-dose SQ SCH (19:58)
[2022-03-03] MEDS: Melatonin 3mg tablet OGT SCH (20:47)
[2022-03-03] MEDS: quetiapine 100mg tablet PO SCH (20:47)
[2022-03-03] MEDS: FENTANYL-0.9 % NACL/PF 100 ML IV SCH (21:24)
[2022-03-03] MEDS: ibuprofen tablet 400 MG TABLET GT PRN (21:25)
[2022-03-04] VITALS (24 sets, daily range): BP systolic 75–115; BP diastolic 43–64
--- NOTE | 2022-03-04 00:22 | NUR ---
pt becoming more hypotensive t/o shift. Also now more altered. Will check an ABG and notify the MD of the results.
[2022-03-04] MEDS: LORazepam 2 mg/ml vial IV PRN ×3 (00:31→23:58)
--- NOTE | 2022-03-04 00:52 | NUR ---
ABG unremarkable. Provider notified of decreasing BP, febrile but WBC count normal. Orders for Levophed to keep MAP > 65. OK to run through midline.
[2022-03-04] MEDS: NORepinephrine 8mg/ 250ml NS 250 ML IV SCH ×3 (01:02→19:44)
[2022-03-04] MEDS: acetaminophen 325mg/10.15ml oral unit dose solution OGT PRN ×2 (01:09→20:52)
[2022-03-04 01:15] LABS: ABG HCO3 34.5 mmol/L (22.0-26.0); ABG OXYGEN SATURATION 94.1 % (94-97); ABG PO2 (T) 83.8 mmHg (75.0-100.0); ALLEN'S TEST Yes; FCOHb 0.3 % (0.0-3.9); FMetHb 0.4 % (0.0-1.5); FO2Hb 93.4 % (94-97); PATIENT TEMPERATURE 38.6; RESPIRATORY RATE 16 b/min; TOTAL HEMOGLOBIN 10.9 G/dl (14.0-18.0)
[2022-03-04] MEDS: piperacillin/tazo 3.375gm/50ml 50 ML IV SCH ×4 (02:09→19:32)
[2022-03-04] MEDS: insulin regular, human U-100 3ml vial - multi-dose SQ SCH ×4 (02:09→19:43)
[2022-03-04] MEDS: ipratropium/albuterol 3ml nebule NEB SCH ×6 (02:52→23:51)
[2022-03-04] MEDS: DEXMEDETOMIDINE 400MCG in NORMAL SALINE 100ml IV SCH ×8 (03:20→22:57)
[2022-03-04] MEDS: morphine 2 MG/ML inj. syringe IV PRN ×4 (03:20→23:00)
[2022-03-04] MEDS: ibuprofen tablet 400 MG TABLET GT PRN (04:17)
[2022-03-04] MEDS: docusate sodium 100mg/10ml UD cup OGT SCH ×2 (06:28→19:02)
[2022-03-04 07:22] LABS: ALANINE AMINOTRANSFERASE 35 U/L (12-78); ALBUMIN 1.9 G/DL (3.4-5.0); ALBUMIN/GLOBULIN RATIO 0.3 (1.1-1.5); ALKALINE PHOSPHATASE 194 IU/L (46-116); ANION GAP 8 (8-16); ASPARTATE AMINO TRANSFERASE 85 U/L (10-37); BILIRUBIN,TOTAL 0.7 MG/DL (0.1-1.0); BLOOD UREA NITROGEN 29 MG/DL (7-18); BUN/CREATININE RATIO 26.1 (5.4-32.0); CALCIUM 8.3 MG/DL (8.5-10.1); CHLORIDE 110 MMOL/L (99-107); CREATININE 1.11 MG/DL (0.60-1.10); GLUCOSE 143 MG/DL (70-104); MAGNESIUM 2.3 MG/DL (1.5-2.4); PHOSPHORUS 3.6 MG/DL (2.3-4.5); POTASSIUM 4.2 MMOL/L (3.5-5.1); SODIUM 147 MMOL/L (135-145); TOTAL CARBON DIOXIDE 29.1 MMOL/L (24-32); TOTAL PROTEIN 7.8 G/DL (6.4-8.2); eGFR 67 ML/MIN
[2022-03-04] MEDS: aspirin 325mg tablet OGT SCH (07:40)
[2022-03-04] MEDS: ESCITALOPRAM OXALATE 5 MG TABLET OGT SCH (07:40)
[2022-03-04] MEDS: lansoprazole 15mg solutab OGT SCH (07:40)
[2022-03-04] MEDS: carvedilol 6.25mg tablet OGT SCH (07:40)
[2022-03-04] MEDS: bumetanide 0.25mg/ml 4ml vial IV SCH ×2 (07:40→19:32)
[2022-03-04] MEDS: clopidogrel 75mg tablet OGT SCH (07:41)
[2022-03-04] MEDS: amiodarone 100mg tablet OGT SCH (07:41)
[2022-03-04] MEDS: levoTHYROXINE 112mcg tablet OGT SCH (07:41)
[2022-03-04] MEDS: QUEtiapine 25mg tablet CORPAK SCH (07:41)
[2022-03-04] MEDS: atorvastatin 20mg tablet OGT SCH (07:41)
[2022-03-04] MEDS: levoTHYROXINE 25mcg tablet OGT SCH (07:41)
[2022-03-04] MEDS: mineral oil/petrolatum, white cream 113gm jar TP SCH ×2 (07:42→19:02)
[2022-03-04] MEDS: OMEGA-3/DHA/EPA/FISH OIL 1 EACH CAPSULE.DR PO SCH (07:42)
[2022-03-04 09:55] LABS: BASOPHILS % (AUTO) 0.7 % (0-1); EOSINOPHILS # (AUTO) 0.3 X10'3 (0-0.9); EOSINOPHILS % (AUTO) 4.6 % (0-6); HEMATOCRIT 34.7 % (42.0-52.0); HEMOGLOBIN 10.8 g/dl (14.0-17.9); LYMPHOCYTES # (AUTO) 0.7 X10'3 (1.1-4.8); LYMPHOCYTES % (AUTO) 10.7 % (21-51); MEAN CORPUSCULAR HEMOGLOBIN 27.7 PG (27.0-31.0); MEAN CORPUSCULAR HGB CONC 31.3 g/dL (33.0-36.5); MEAN CORPUSCULAR VOLUME 88.7 FL (78-98); MONOCYTES # (AUTO) 0.3 X10'3 (0-0.9); MONOCYTES % (AUTO) 5.5 % (2-12); NEUTROPHILS # (AUTO) 4.9 X10'3 (1.8-7.7); NEUTROPHILS % (AUTO) 78.5 % (42-75); PLATELET COUNT 104 X10'3 (140-440); RED BLOOD COUNT 3.91 X10'6 (4.70-6.10); RED CELL DISTRIBUTION WIDTH 18.5 % (11.5-14.5); WHITE BLOOD COUNT 6.2 X10'3 (4.5-11.0)
[2022-03-04 10:25] LABS: PLATELET ESTIMATE DECREASED
[2022-03-04 10:26] LABS: ANISOCYTOSIS 2+
[2022-03-04 10:27] LABS: LARGE PLATELETS FEW; POLYCHROMASIA FEW
[2022-03-04] MEDS: ciprofloxacin lact 400MG/200ML 200 ML IV SCH ×2 (10:57→19:33)
[2022-03-04] MEDS: ibuprofen 100 MG/5 ML oral susp CORPAK PRN (18:13)
[2022-03-04] MEDS: polyethylene glycol 3350 17gm powd pack OGT SCH (19:03)
[2022-03-04] MEDS: fluconazole-Diflucan 200mg/NS 100 ML IV SCH (19:33)
[2022-03-04] MEDS: insulin glargine (Lantus) pen - multi-dose SQ SCH (19:42)
[2022-03-04] MEDS ORDERED: enoxaparin 40mg/0.4ml syringe SUBCUT SCH (20:00)
[2022-03-04] MEDS ORDERED: metroNIDAZOLE-Flagyl 250mg/NS 50 ML IV SCH (20:00)
[2022-03-04] MEDS: quetiapine 100mg tablet PO SCH (20:52)
[2022-03-04] MEDS: Melatonin 3mg tablet OGT SCH (20:52)
--- NOTE | 2022-03-04 21:42 | NUR ---
weekly photos taken and placed in chart.
[2022-03-05] VITALS (23 sets, daily range): BP systolic 80–117; BP diastolic 40–70
[2022-03-05] MEDS: ibuprofen 100 MG/5 ML oral susp CORPAK PRN (00:43)
[2022-03-05] MEDS: DEXMEDETOMIDINE 400MCG in NORMAL SALINE 100ml IV SCH ×2 (01:07→03:32)
[2022-03-05] MEDS: insulin regular, human U-100 3ml vial - multi-dose SQ SCH ×2 (01:53→08:20)
--- NOTE | 2022-03-05 02:19 | NUR ---
Temp 39.2. I have been rotating Motrin and Tylenol t/o the night. Fan on. Cooling blanket placed behind patient and set to lowest temp for now.
[2022-03-05] MEDS: piperacillin/tazo 3.375gm/50ml 50 ML IV SCH (02:25)
[2022-03-05] MEDS: ipratropium/albuterol 3ml nebule NEB SCH ×6 (02:55→23:32)
--- NOTE | 2022-03-05 05:33 | NUR ---
Pt taken from BiPap to HFNC after his morning CXR. Actually quite pleasant and not at all agitated. Pt asked where he was it and what happened. Updated him but he quickly fell asleep, precedex decreased, will continue to orient pt to situation as he wakes.
[2022-03-05] MEDS: docusate sodium 100mg/10ml UD cup OGT SCH ×2 (06:25→20:01)
[2022-03-05] MEDS: NORepinephrine 8mg/ 250ml NS 250 ML IV SCH ×3 (07:00→16:55)
[2022-03-05 07:45] LABS: BASOPHILS % (AUTO) 0.8 % (0-1); EOSINOPHILS # (AUTO) 0.3 X10'3 (0-0.9); HEMATOCRIT 34.5 % (42.0-52.0); HEMOGLOBIN 10.5 g/dl (14.0-17.9); LYMPHOCYTES # (AUTO) 0.6 X10'3 (1.1-4.8); LYMPHOCYTES % (AUTO) 12.7 % (21-51); MEAN CORPUSCULAR HEMOGLOBIN 27.5 PG (27.0-31.0); MEAN CORPUSCULAR HGB CONC 30.5 g/dL (33.0-36.5); MEAN PLATELET VOLUME 11.1 FL (7.4-10.4); MONOCYTES # (AUTO) 0.2 X10'3 (0-0.9); NEUTROPHILS # (AUTO) 3.7 X10'3 (1.8-7.7); NEUTROPHILS % (AUTO) 75.5 % (42-75); PLATELET COUNT 89 X10'3 (140-440); RED BLOOD COUNT 3.83 X10'6 (4.70-6.10); WHITE BLOOD COUNT 4.9 X10'3 (4.5-11.0)
[2022-03-05 07:57] LABS: ALANINE AMINOTRANSFERASE 39 U/L (12-78); ALBUMIN/GLOBULIN RATIO 0.4 (1.1-1.5); ALKALINE PHOSPHATASE 182 IU/L (46-116); ANION GAP 7 (8-16); ASPARTATE AMINO TRANSFERASE 79 U/L (10-37); BILIRUBIN,TOTAL 0.5 MG/DL (0.1-1.0); BLOOD UREA NITROGEN 28 MG/DL (7-18); BUN/CREATININE RATIO 26.2 (5.4-32.0); CALCIUM 8.4 MG/DL (8.5-10.1); CHLORIDE 112 MMOL/L (99-107); CREATININE 1.07 MG/DL (0.60-1.10); GLUCOSE 164 MG/DL (70-104); PHOSPHORUS 3.4 MG/DL (2.3-4.5); POTASSIUM 3.7 MMOL/L (3.5-5.1); PREALBUMIN 13.9 MG/DL (19-36); SODIUM 152 MMOL/L (135-145); TOTAL CARBON DIOXIDE 32.7 MMOL/L (24-32); TOTAL PROTEIN 7.7 G/DL (6.4-8.2); eGFR 70 ML/MIN
[2022-03-05] MEDS: ciprofloxacin lact 400MG/200ML 200 ML IV SCH (07:58)
[2022-03-05] MEDS: OMEGA-3/DHA/EPA/FISH OIL 1 EACH CAPSULE.DR PO SCH (08:00)
[2022-03-05] MEDS: fluconazole-Diflucan 200mg/NS 100 ML IV SCH (08:05)
[2022-03-05] MEDS: lansoprazole 15mg solutab OGT SCH (08:10)
[2022-03-05] MEDS: ESCITALOPRAM OXALATE 5 MG TABLET OGT SCH (08:10)
[2022-03-05] MEDS: clopidogrel 75mg tablet OGT SCH (08:11)
[2022-03-05] MEDS: QUEtiapine 25mg tablet CORPAK SCH (08:11)
[2022-03-05] MEDS: atorvastatin 20mg tablet OGT SCH (08:12)
[2022-03-05] MEDS: levoTHYROXINE 25mcg tablet OGT SCH (08:12)
[2022-03-05] MEDS: levoTHYROXINE 112mcg tablet OGT SCH (08:12)
[2022-03-05] MEDS: aspirin 325mg tablet OGT SCH (08:13)
[2022-03-05 08:28] LABS: LARGE PLATELETS FEW; PLATELET ESTIMATE DECREASED
[2022-03-05 08:29] LABS: ANISOCYTOSIS 2+
[2022-03-05] MEDS: mineral oil/petrolatum, white cream 113gm jar TP SCH ×2 (08:55→20:02)
[2022-03-05] MEDS: bumetanide 0.25mg/ml 4ml vial IV SCH ×2 (10:19→19:35)
[2022-03-05] MEDS: amiodarone 100mg tablet OGT SCH (10:20)
[2022-03-05] MEDS: meropenem inj 2 GM in normal saline 100ml IV soln 100 ML IV SCH ×2 (10:40→16:25)
--- NOTE | 2022-03-05 10:44 | NUR ---
F/u 03/05: Pt extubated yesterday corpak remains in place tolerating TF at goal GRV WNL per EMR. Pt on 50L HFNC cleared for pureed/nectar thick diet this AM per OCCUPATIONAL REHABILITATION AIDE recs though may be NPO given intake ability per RN at rounds. R chest tube clamped w/ 16.4L overall output this admit per EMR. Rectal tube -200ml receiving routine colace and miralax. PALB 13.9 this AM up from 9.6 prior per EMR. Will keep initial EN recs at this time and adjust accordingly pending PO trends/further labs. Recommendations: 1) Post-pyloric feeds via corpak per MD using Vital HP at 90 mL/hr goal to provide 2160 mL total volume/day, 2160 kcal, 189 g protein, and 1806 mL water 2) pureed/nectar thick diet per OCCUPATIONAL REHABILITATION AIDE/MD recs; once adequate PO assured consider heart healthy restriction 3) Continue NG feeds until consistent adequate PO diet intake assured 4) Additional 200 mL water flush Q4H per MD; monitor serum Na 5) Prealbumin q Saturday/; Daily scaled weights 6) Routine bowel care Addendum: 03/05/22 at [address] Amended: Links added.
[2022-03-05] MEDS: midodrine 5mg tablet PO SCH ×2 (12:45→16:08)
--- NOTE | 2022-03-05 15:14 | NUR ---
0800- turned off precedex, levo already off, patient more alert. Swallow eval completed, OK to nectar thick liquids and puree foods. 0900- Dr Rodriguez here, clamp CT, increase bumex and start midodrine to hopefully fluid shift pleural fluid out of body. Hold lovenox, no to pleurodesis at this time. change antibiotic to meropenem for + sputum with klebsiella, Ok for amiodarone to continue as patient has had RVR in past. stop coreg. Discontinue scopalamine patch, PT eval and tx. 1030- Corepak removed by patient, unable to replace as patient coughed it up twice, patient more alert and complaining about rectal tube, also removed. no stool in rectum. Much more comfortable. Will notify MD when he rounds again.
[2022-03-05] MEDS: MEROPENEM IV SCH (16:08)
[2022-03-05] MEDS: NORMAL SALINE IV SCH (16:08)
--- NOTE | 2022-03-05 19:40 | NUR ---
Odilonx held per parameters. BP 104/70.
[2022-03-05] MEDS: quetiapine 100mg tablet PO SCH (20:01)
[2022-03-05] MEDS: polyethylene glycol 3350 17gm powd pack OGT SCH (20:01)
[2022-03-05] MEDS: Melatonin 3mg tablet OGT SCH (20:01)
[2022-03-05] MEDS: insulin glargine (Lantus) pen - multi-dose SQ SCH (21:00)
[2022-03-06] VITALS (17 sets, daily range): BP systolic 90–146; BP diastolic 49–90
[2022-03-06] MEDS: ipratropium/albuterol 3ml nebule NEB SCH ×6 (02:57→23:52)
[2022-03-06 06:21] LABS: BASOPHILS % (AUTO) 0.5 % (0-1); EOSINOPHILS # (AUTO) 0.3 X10'3 (0-0.9); EOSINOPHILS % (AUTO) 7.3 % (0-6); HEMATOCRIT 34.7 % (42.0-52.0); HEMOGLOBIN 10.8 g/dl (14.0-17.9); LYMPHOCYTES # (AUTO) 0.4 X10'3 (1.1-4.8); LYMPHOCYTES % (AUTO) 9.8 % (21-51); MEAN CORPUSCULAR HEMOGLOBIN 27.7 PG (27.0-31.0); MEAN CORPUSCULAR HGB CONC 31.3 g/dL (33.0-36.5); MEAN CORPUSCULAR VOLUME 88.4 FL (78-98); MEAN PLATELET VOLUME 11.5 FL (7.4-10.4); MONOCYTES # (AUTO) 0.2 X10'3 (0-0.9); NEUTROPHILS # (AUTO) 3.3 X10'3 (1.8-7.7); NEUTROPHILS % (AUTO) 77.4 % (42-75); PLATELET COUNT 81 X10'3 (140-440); RED BLOOD COUNT 3.92 X10'6 (4.70-6.10); RED CELL DISTRIBUTION WIDTH 18.4 % (11.5-14.5); WHITE BLOOD COUNT 4.3 X10'3 (4.5-11.0)
--- NOTE | 2022-03-06 06:25 | NUR ---
Report given to KAYLIN Saenz. Drrigoberto verified. Pt in no acute distress at time of handoff.
[2022-03-06 06:26] LABS: ALANINE AMINOTRANSFERASE 40 U/L (12-78); ALBUMIN 2.1 G/DL (3.4-5.0); ALBUMIN/GLOBULIN RATIO 0.4 (1.1-1.5); ALKALINE PHOSPHATASE 176 IU/L (46-116); ANION GAP 7 (8-16); ASPARTATE AMINO TRANSFERASE 73 U/L (10-37); BILIRUBIN,TOTAL 0.7 MG/DL (0.1-1.0); BLOOD UREA NITROGEN 23 MG/DL (7-18); CALCIUM 8.5 MG/DL (8.5-10.1); CHLORIDE 110 MMOL/L (99-107); CREATININE 0.96 MG/DL (0.60-1.10); GLUCOSE 112 MG/DL (70-104); MAGNESIUM 1.9 MG/DL (1.5-2.4); PHOSPHORUS 2.7 MG/DL (2.3-4.5); POTASSIUM 3.7 MMOL/L (3.5-5.1); SODIUM 152 MMOL/L (135-145); TOTAL CARBON DIOXIDE 35.4 MMOL/L (24-32); TOTAL PROTEIN 7.8 G/DL (6.4-8.2); TRIGLYCERIDES 108 MG/DL (20-135); eGFR 80 ML/MIN
[2022-03-06] MEDS: bumetanide 0.25mg/ml 4ml vial IV SCH (08:00)
[2022-03-06] MEDS: amiodarone 100mg tablet OGT SCH (08:29)
[2022-03-06] MEDS: lansoprazole 15mg solutab OGT SCH (08:29)
[2022-03-06] MEDS: aspirin 325mg tablet OGT SCH (08:30)
[2022-03-06] MEDS: levoTHYROXINE 112mcg tablet OGT SCH (08:30)
[2022-03-06] MEDS: OMEGA-3/DHA/EPA/FISH OIL 1 EACH CAPSULE.DR PO SCH (08:30)
[2022-03-06] MEDS: ESCITALOPRAM OXALATE 5 MG TABLET OGT SCH (08:30)
[2022-03-06] MEDS: levoTHYROXINE 25mcg tablet OGT SCH (08:30)
[2022-03-06] MEDS: clopidogrel 75mg tablet OGT SCH (08:31)
[2022-03-06] MEDS: atorvastatin 20mg tablet OGT SCH (08:31)
[2022-03-06] MEDS: QUEtiapine 25mg tablet CORPAK SCH (08:31)
[2022-03-06] MEDS: docusate sodium 100mg/10ml UD cup OGT SCH (08:31)
[2022-03-06] MEDS: fluconazole-Diflucan 200mg/NS 100 ML IV SCH (08:32)
[2022-03-06] MEDS: NORMAL SALINE IV SCH ×3 (08:33→19:38)
[2022-03-06] MEDS: MEROPENEM IV SCH ×3 (08:33→19:38)
[2022-03-06] MEDS: midodrine 5mg tablet PO SCH ×3 (09:56→17:57)
[2022-03-06] MEDS: mineral oil/petrolatum, white cream 113gm jar TP SCH ×2 (09:56→20:45)
[2022-03-06] MEDS ORDERED: quetiapine 100mg tablet CORPAK SCH (09:57)
--- NOTE | 2022-03-06 10:15 | NUR ---
ROUNDS NOTE: -Dr. Rodriguez aware Bumex was held for low BP (less than 105) -passed swallow eval, can have thin liquids and mechanical/chopped food -Pt. to be transferred to [facility]/floor denise -DC Bhatti. place CC
[2022-03-06] MEDS ORDERED: acetaminophen 325mg tablet PO PRN (10:48)
[2022-03-06] MEDS ORDERED: acetaZOLAMIDE 500mg capsule.SA PO ONE (10:50)
[2022-03-06] MEDS ORDERED: DEXTROSE 15 GM of carb/4 tabs (each vial/BOTTLE has 4 tablets) PO PRN ×2 (10:50)
[2022-03-06] MEDS ORDERED: ibuprofen 200mg tablet PO PRN (10:51)
[2022-03-06] MEDS ORDERED: magnesium hydroxide 30ml (MOM) UD suspension PO PRN (10:52)
[2022-03-06] MEDS ORDERED: POTASSIUM BICARB 20meq eff tab 20 MEQ TABLET.EFF PO PRN ×2 (10:54)
[2022-03-06] MEDS ORDERED: bumetanide 0.25mg/ml 4ml vial IV SCH (10:55)
[2022-03-06] MEDS ORDERED: insulin Lispro (HumaLOG) vial - multi-dose SQ SCH (10:56)
--- NOTE | 2022-03-06 11:09 | NUR ---
Reassessment: Per EMR pt pulled out Corpak 03/05 and attempts at replacing were unsuccessful. Pt s/p f/u BSS today with ST recs texture advancement to MM5 with thin liquids. Per EMR pt documented with only 25% PO intake of starch this morning. Will closely monitor trends in PO intake and make recommendations as appropriate. Patient's serum Na remains elevated at 152 MMOL/L today, MD newman. LBM 03/04, receiving routine bowel care. Rectal tube discontinued per EMR. Will continue to follow closely. Recommendations: 1) Continue MM5 diet with thin liquids per ST recs; once adequate PO assured consider heart healthy restriction 2) Monitor need for ONS 3) Routine bowel care 4) Weekly scaled weights Addendum: 03/06/22 at [address] Amended: Links added.
--- NOTE | 2022-03-06 11:53 | NUR ---
Pt. transferred to [facility] via bed with all belongings in stable condition after giving report via telephone to Meme EWING.
--- NOTE | 2022-03-06 11:54 | NUR ---
Bhatti discontinued intact at 1145, 300 cc clear light zac urine in bag. Patient tolerated well. Urinal with patient.
--- NOTE | 2022-03-06 17:30 | NUR ---
Pt. slid out of bed while trying to get up to use restroom. Pt. transferred to PCU from ICU at around 1500. Primary RN assessed pt. on transfer, axox3, struggled with time. Pt. educated on using call light, was compliant with using it, however, tried to get out to bed to have a BM. Pt. did not hit head, paged. Pt. has yet to work with PT. Post fall vital signs: T 98 F, P 96, RR 22, O2 96, BP 110/74 (86) taken on the R arm, no complaints of pain, no new skin issues. CT site intact, still leaking from when pt. transferred to ICU.
--- NOTE | 2022-03-06 18:30 | NUR ---
Patient in room PCU 3026. I have received report from jeffrey and had the opportunity to ask questions and assume patient care.
--- NOTE | 2022-03-06 18:30 | NUR ---
Patient in room PCU 3026. I have received report from leno and had the opportunity to ask questions and assume patient care.
[2022-03-06] MEDS: polyethylene glycol 3350 17gm powd pack PO SCH (18:59)
--- NOTE | 2022-03-06 19:03 | NUR ---
PAGER ID: [phone] MESSAGE: [phone] [address] [place]. Had a fall, post fall v/s stable, did not hit head, slid out of bed, skin intact. CT in place, still clamped, continues to drain excessively. Thank you. Jocelyn EWING [id number]
--- NOTE | 2022-03-06 19:03 | NUR ---
Problems reprioritized. Patient report given, questions answered & plan of care reviewed with Denton GAMA.
[2022-03-06] MEDS: docusate sod 100mg capsule PO SCH (20:00)
[2022-03-06] MEDS: Melatonin 3mg tablet PO SCH (20:34)
[2022-03-06] MEDS: quetiapine 100mg tablet PO SCH (20:34)
[2022-03-06] MEDS: insulin glargine (Lantus) pen - multi-dose SQ SCH (20:45)
[2022-03-07] MEDS: NORMAL SALINE IV SCH (01:01)
[2022-03-07] MEDS: MEROPENEM IV SCH (01:01)
[2022-03-07 02:00] VITALS: BP 119/67
[2022-03-07] MEDS: ipratropium/albuterol 3ml nebule NEB SCH ×6 (03:27→22:44)
--- NOTE | 2022-03-07 06:36 | NUR ---
Problems reprioritized. Patient report given, questions answered & plan of care reviewed with jeffrey.
[2022-03-07 06:38] LABS: ALANINE AMINOTRANSFERASE 36 U/L (12-78); ALBUMIN 2.1 G/DL (3.4-5.0); ALBUMIN/GLOBULIN RATIO 0.4 (1.1-1.5); ALKALINE PHOSPHATASE 169 IU/L (46-116); ANION GAP 8 (8-16); ASPARTATE AMINO TRANSFERASE 73 U/L (10-37); BILIRUBIN,TOTAL 0.7 MG/DL (0.1-1.0); BLOOD UREA NITROGEN 20 MG/DL (7-18); BUN/CREATININE RATIO 22.5 (5.4-32.0); CALCIUM 8.6 MG/DL (8.5-10.1); CHLORIDE 108 MMOL/L (99-107); CREATININE 0.89 MG/DL (0.60-1.10); GLUCOSE 105 MG/DL (70-104); PHOSPHORUS 2.7 MG/DL (2.3-4.5); POTASSIUM 3.9 MMOL/L (3.5-5.1); SODIUM 144 MMOL/L (135-145); TOTAL CARBON DIOXIDE 28.5 MMOL/L (24-32); TOTAL PROTEIN 7.8 G/DL (6.4-8.2); TRIGLYCERIDES 104 MG/DL (20-135); eGFR 87 ML/MIN
[2022-03-07] MEDS: docusate sod 100mg capsule PO SCH ×2 (07:11→20:00)
[2022-03-07 07:24] VITALS: BP 116/57
[2022-03-07] MEDS: mineral oil/petrolatum, white cream 113gm jar TP SCH ×2 (08:00→20:00)
[2022-03-07] MEDS: levoTHYROXINE 112mcg tablet PO SCH (09:54)
[2022-03-07] MEDS: levoTHYROXINE 25mcg tablet PO SCH (09:55)
[2022-03-07] MEDS: OMEGA-3/DHA/EPA/FISH OIL 1 EACH CAPSULE.DR PO SCH (09:57)
[2022-03-07] MEDS: amiodarone 100mg tablet PO SCH (09:57)
[2022-03-07] MEDS: clopidogrel 75mg tablet PO SCH (09:58)
[2022-03-07] MEDS: midodrine 5mg tablet PO SCH ×3 (09:59→17:32)
[2022-03-07] MEDS: quetiapine 100mg tablet PO SCH ×2 (09:59→21:12)
[2022-03-07] MEDS: aspirin 325mg tablet PO SCH (10:00)
[2022-03-07] MEDS: lansoprazole 15mg solutab PO SCH (10:00)
[2022-03-07] MEDS: atorvastatin 20mg tablet PO SCH (10:01)
[2022-03-07] MEDS: fluconazole-Diflucan 200mg/NS 100 ML IV SCH (10:01)
[2022-03-07] MEDS: ESCITALOPRAM OXALATE 5 MG TABLET PO SCH (10:01)
[2022-03-07] MEDS: ciprofloxacin lact 400MG/200ML 200 ML IV SCH ×2 (10:37→20:00)
[2022-03-07 11:53] VITALS: BP 119/73
--- NOTE | 2022-03-07 13:15 | NUR ---
UNCLAMP CHEST TUBE PER DR KAUR
[2022-03-07] MEDS: acetaminophen 325mg tablet PO PRN (17:38)
[2022-03-07 18:00] VITALS: BP 119/64
--- NOTE | 2022-03-07 18:16 | NUR ---
Problems reprioritized. Patient report given, questions answered & plan of care reviewed with BEN EWING.
[2022-03-07] MEDS: polyethylene glycol 3350 17gm powd pack PO SCH (20:33)
[2022-03-07] MEDS: insulin glargine (Lantus) pen - multi-dose SQ SCH (21:00)
[2022-03-07] MEDS: Melatonin 3mg tablet PO SCH (21:13)
[2022-03-08] MEDS: ipratropium/albuterol 3ml nebule NEB SCH ×3 (03:32→11:00)
[2022-03-08 06:00] VITALS: BP 126/72
--- NOTE | 2022-03-08 06:35 | NUR ---
Problems reprioritized. Patient report given, questions answered & plan of care reviewed with skyler.
--- NOTE | 2022-03-08 06:36 | NUR ---
INSERT OPERATOR ASSESSMENT REVIEWED AND IN AGREEMENT.
[2022-03-08 06:44] LABS: ALANINE AMINOTRANSFERASE 31 U/L (12-78); ALBUMIN 2.1 G/DL (3.4-5.0); ALBUMIN/GLOBULIN RATIO 0.4 (1.1-1.5); ALKALINE PHOSPHATASE 167 IU/L (46-116); ANION GAP 9 (8-16); ASPARTATE AMINO TRANSFERASE 64 U/L (10-37); BILIRUBIN,TOTAL 0.5 MG/DL (0.1-1.0); BLOOD UREA NITROGEN 20 MG/DL (7-18); BUN/CREATININE RATIO 25.3 (5.4-32.0); CALCIUM 8.4 MG/DL (8.5-10.1); CHLORIDE 108 MMOL/L (99-107); CREATININE 0.79 MG/DL (0.60-1.10); GLUCOSE 124 MG/DL (70-104); MAGNESIUM 2.1 MG/DL (1.5-2.4); PHOSPHORUS 2.4 MG/DL (2.3-4.5); POTASSIUM 3.7 MMOL/L (3.5-5.1); PREALBUMIN 14.9 MG/DL (19-36); SODIUM 144 MMOL/L (135-145); TOTAL CARBON DIOXIDE 27.3 MMOL/L (24-32); eGFR > 90 ML/MIN
--- NOTE | 2022-03-08 07:00 | NUR ---
Patient in room PCU 3026. I have received report from KAYLIN CONTRERAS, and had the opportunity to ask questions and assume patient care.
[2022-03-08] MEDS: levoTHYROXINE 25mcg tablet PO SCH (07:27)
[2022-03-08] MEDS: levoTHYROXINE 112mcg tablet PO SCH (07:27)
[2022-03-08 07:47] LABS: BASOPHILS % (AUTO) 0.6 % (0-1); EOSINOPHILS # (AUTO) 0.2 X10'3 (0-0.9); EOSINOPHILS % (AUTO) 5.3 % (0-6); HEMOGLOBIN 10.3 g/dl (14.0-17.9); LYMPHOCYTES # (AUTO) 0.4 X10'3 (1.1-4.8); MEAN CORPUSCULAR HEMOGLOBIN 27.2 PG (27.0-31.0); MEAN CORPUSCULAR HGB CONC 31.3 g/dL (33.0-36.5); MEAN CORPUSCULAR VOLUME 86.9 FL (78-98); MEAN PLATELET VOLUME 12.2 FL (7.4-10.4); MONOCYTES # (AUTO) 0.3 X10'3 (0-0.9); MONOCYTES % (AUTO) 7.8 % (2-12); NEUTROPHILS # (AUTO) 2.4 X10'3 (1.8-7.7); NEUTROPHILS % (AUTO) 74.3 % (42-75); PLATELET COUNT 64 X10'3 (140-440); RED CELL DISTRIBUTION WIDTH 18.2 % (11.5-14.5); WHITE BLOOD COUNT 3.2 X10'3 (4.5-11.0)
[2022-03-08] MEDS ORDERED: fluconazole 100mg tablet PO SCH (08:00)
[2022-03-08] MEDS: ciprofloxacin lact 400MG/200ML 200 ML IV SCH (08:33)
[2022-03-08] MEDS: docusate sod 100mg capsule PO SCH (08:36)
[2022-03-08] MEDS: midodrine 5mg tablet PO SCH ×2 (08:36→11:32)
[2022-03-08] MEDS: amiodarone 100mg tablet PO SCH (08:37)
[2022-03-08] MEDS: quetiapine 100mg tablet PO SCH (08:37)
[2022-03-08] MEDS: aspirin 325mg tablet PO SCH (08:37)
[2022-03-08] MEDS: clopidogrel 75mg tablet PO SCH (08:37)
[2022-03-08] MEDS: atorvastatin 20mg tablet PO SCH (08:37)
[2022-03-08] MEDS: OMEGA-3/DHA/EPA/FISH OIL 1 EACH CAPSULE.DR PO SCH (08:41)
[2022-03-08] MEDS: lansoprazole 15mg solutab PO SCH (08:42)
[2022-03-08] MEDS: ESCITALOPRAM OXALATE 5 MG TABLET PO SCH (08:42)
[2022-03-08] MEDS: mineral oil/petrolatum, white cream 113gm jar TP SCH (08:44)
[2022-03-08 08:59] LABS: ANISOCYTOSIS 2+; PLATELET ESTIMATE DECREASED
[2022-03-08 09:00] LABS: LARGE PLATELETS FEW
[2022-03-08] MEDS: acetaminophen 325mg tablet PO PRN (11:23)
--- NOTE | 2022-03-08 13:11 | NUR ---
REPORT CALLED TO CAMI EDDY RN. PT TRANSFERRED BY AMBULANCE, [facility], 40%, 12 L. TOOK PT'S BELONGINGS. PAPERWORK SENT WITH INTERNET SALESPERSON.
== END 2022-03-08 12:08 | DRG 870 ==
LOC: ER 19:23 → ED HOLD 23:45 → EDBEDREQ 02-20 01:39 → EDBEDREQTM 02-20 01:39 → CICU 2S 02-20 13:37 → ICU 2S 02-28 10:56 → PCU 3S 03-06 11:45
PROVIDERS: ADMIT Internal Medicine; ATTEND Psychiatry & Neurology Neurocritical Care
PROC: 0BH17EZ Insertion of Endotracheal Airway into Trachea, Via Natural or Artificial Opening (ICD-10-PCS; 2022-02-19)
PROC: 5A1955Z Respiratory Ventilation, Greater than 96 Consecutive Hours (ICD-10-PCS; 2022-02-19)
PROC: 30233R1 Transfusion of Nonautologous Platelets into Peripheral Vein, Percutaneous Approach (ICD-10-PCS; principal; 2022-02-20)
PROC: 0W9930Z Drainage of Right Pleural Cavity with Drainage Device, Percutaneous Approach (ICD-10-PCS; 2022-02-20)
PROC: 03HY32Z Insertion of Monitoring Device into Upper Artery, Percutaneous Approach (ICD-10-PCS; 2022-02-23)
PROC: 4A133B1 Monitoring of Arterial Pressure, Peripheral, Percutaneous Approach (ICD-10-PCS; 2022-02-23)
PROC: 4A133J1 Monitoring of Arterial Pulse, Peripheral, Percutaneous Approach (ICD-10-PCS; 2022-02-23)
PROC: BW201ZZ Computerized Tomography (CT Scan) of Abdomen using Low Osmolar Contrast (ICD-10-PCS; 2022-02-23)
PROC: 0B978ZZ Drainage of Left Main Bronchus, Via Natural or Artificial Opening Endoscopic (ICD-10-PCS; 2022-02-23)
PROC: 0B938ZZ Drainage of Right Main Bronchus, Via Natural or Artificial Opening Endoscopic (ICD-10-PCS; 2022-02-23)
PROC: 5A09457 Assistance with Respiratory Ventilation, 24-96 Consecutive Hours, Continuous Positive Airway Pressure (ICD-10-PCS; 2022-03-03)
PROC: 5A0935A Assistance with Respiratory Ventilation, Less than 24 Consecutive Hours, High Flow/Velocity Cannula (ICD-10-PCS; 2022-03-04)
PROC: 5A09357 Assistance with Respiratory Ventilation, Less than 24 Consecutive Hours, Continuous Positive Airway Pressure (ICD-10-PCS; 2022-03-04)
PROC: 5A0945A Assistance with Respiratory Ventilation, 24-96 Consecutive Hours, High Flow/Velocity Cannula (ICD-10-PCS; 2022-03-05)
DX: A41.9 Sepsis, unspecified organism (principal); G93.41 Metabolic encephalopathy; J15.0 Pneumonia due to Klebsiella pneumoniae; I50.21 Acute systolic (congestive) heart failure; J96.21 Acute and chronic respiratory failure with hypoxia; J96.22 Acute and chronic respiratory failure with hypercapnia; E43 Unspecified severe protein-calorie malnutrition; J98.11 Atelectasis; Z68.41 Body mass index [BMI] 40.0-44.9, adult; J91.8 Pleural effusion in other conditions classified elsewhere; E87.1 Hypo-osmolality and hyponatremia; D69.6 Thrombocytopenia, unspecified; E03.9 Hypothyroidism, unspecified; E11.65 Type 2 diabetes mellitus with hyperglycemia; Z20.822 Contact with and (suspected) exposure to COVID-19; E66.01 Morbid (severe) obesity due to excess calories; K76.9 Liver disease, unspecified; F32.A Depression, unspecified; I11.0 Hypertensive heart disease with heart failure; E87.6 Hypokalemia; R74.01 Elevation of levels of liver transaminase levels; Z79.899 Other long term (current) drug therapy; Z79.82 Long term (current) use of aspirin; Z79.02 Long term (current) use of antithrombotics/antiplatelets; Z78.1 Physical restraint status
CPT/HCPCS: 31645; 36410; 36415; 36430; 36569; 36600; 71045; 71260; 74018; 76700; 80048; 80053; 80202; 80305; 80320; 81001; 82042; 82803; 82948; 83036; 83615; 83735; 83880; 84100; 84132; 84134; 84145; 84443; 84478; 84484; 85007; 85008; 85018; 85025; 85379; 85384; 85610; 85730; 86038; 86361; 86705; 86706; 86803; 86885; 86900; 86901; 87070; 87077; 87186; 87340; 87502; 87503; 87635; 89051; 92508; 92616; 93005; 93306; 94002; 94003; 94640; 94660; 94760; 94799; 97110; 97161; 97530; 99285; A4333; A6212; A6213; A6222; A6223; A6250; A6253; A6258; A6402; A6446; A6449; A7015; A9900; C1751; C9803; G0378; J0131; J0330; J0456; J0706; J0744; J0883; J1450; J1644; J1650; J1815; J1940; J2060; J2185; J2250; J2270; J2310; J2543; J2704; J2765; J3010; J3370; J3475; J3480; J3490; J7030; J7040; J7050; J7060; J7070; P9035; P9047; Q9967